=== PATIENT | male | born 1955 | race Caucasian/White ===

== ENCOUNTER 2018-03-20 18:04 | Outpatient (REF) | payer MEDICAID, SELFPAY ==
[2018-03-20 22:00] LABS: TSH (W/Ref FT4) 2.25 uIU/mL (0.358-3.74)
== END 2018-03-20 18:24 ==
LOC: NCHCN 18:04
PROVIDERS: Physician Assistant; PCP Family Medicine; Visit Provider Nurse Practitioner Family
DX: N64.59 Other signs and symptoms in breast (principal); L98.9 Disorder of the skin and subcutaneous tissue, unspecified
CPT/HCPCS: 84443

== ENCOUNTER 2018-04-02 00:31 | Outpatient (CLI) | payer MEDICAID, SELFPAY ==
--- NOTE | 2018-04-02 13:05 | DI.COMBO_ITS ---
SYMPTOMS/DIAGNOSIS: CHANGES IN NIPPLE, N64.59 DIAGNOSTIC BILATERAL MAMMOGRAM AND BILATERAL BREAST ULTRASOUND: MAMMOGRAM: Mammograms were interpreted according to the usual protocol including computer analysis with CAD system, tomosynthesis and C view imaging. There are no prior mammograms. The breasts are composed of fatty density tissue. No masses or suspicious calcifications are seen. There is no skin thickening or prominence of the nipples. No gynecomastia is seen. BILATERAL BREAST ULTRASOUND: No mass, cyst or breast tissue is seen. Only fatty tissue is identified. IMPRESSION: Category 1, negative mammogram and bilateral breast ultrasound. [facility] ASSESSMENT OF FINDINGS: Negative. Category 1. Patient will receive a letter notifying them of these results. BI-RAD category A. The breasts are almost entirely fatty.
== END 2018-04-02 00:51 ==
PROVIDERS: PCP Family Medicine; Visit Provider Nurse Practitioner Family
DX: N64.59 Other signs and symptoms in breast (principal)
CPT/HCPCS: 76642; 77062; 77066; G0279

== ENCOUNTER 2018-06-13 16:57 | Outpatient (REF) | payer MEDICAID, SELFPAY ==
[2018-06-13 21:18] LABS: Abs Immature Grans 0.03 k/cumm (0.0-0.09); Absolute Eosinophil Count 0.24 k/cumm (0.0-0.7); Absolute Monocyte Count 0.91 k/cumm (0.11-0.7); Basophils % 0.6; Eosinophils % 2.2; HCT 47.1 % (40.0-50.0); HGB 16.3 g/dL (13.5-17.5); Immature Grans % 0.3; Lymphocytes % 22.1; Mean Corp. HGB Concentration 34.6 g/dL (32.0-36.0); Mean Corpuscular Hemoglobin 30.6 pg (27.0-33.0); Mean Corpuscular Volume 88.5 fL (80-95); Mean Platelet Volume 10.3 fL (8.0-11.0); Monocytes % 8.4; Neutrophils % 66.4; Platelet Count 284 x1000/uL (130-400); RBC 5.32 m/cumm (4.50-6.00); RBC Distribution Width 13.1 % (11.8-14.1); White Blood Cell Count 10.88 k/cumm (4.4-10.8)
[2018-06-13 21:19] LABS: Absolute Basophil Count 0.07 k/cumm (0.0-0.2); Absolute Neutrophil Count 7.22 k/cumm (1.2-6.7)
[2018-06-13 22:00] LABS: ALT 28 U/L (12-78); AST 19 U/L (15-37); Alkaline Phosphatase 116 U/L (46-116); Anion Gap 11.1 mmol/L (3-11); BUN 25 mg/dL (7-18); Bilirubin, Total 0.4 mg/dL (0.2-1.0); CO2 24.9 mmol/L (21.0-32.0); CREATININE 1.21 mg/dL (0.70-1.30); Calcium 9.3 mg/dL (8.5-10.1); Chloride 106 mmol/L (98-107); Cholesterol 224 mg/dL (50-200); Glucose 118 mg/dL (70-100); HDL Cholesterol 34 mg/dL (40-60); LDL CHOLESTEROL 158 mg/dL (<100); Potassium 4.1 mmol/L (3.5-5.1); Sodium 142 mmol/L (136-145); Total Protein 7.1 g/dL (6.4-8.2); Triglyceride 249 mg/dL (30-150); Vitamin B12 695 pg/mL (193-986)
[2018-06-15 13:01] LABS: PSA, Screening 2.1 ng/ml (0-4.5)
[2018-06-20 17:04] LABS: Testosterone, Free 5.79 ng/dL (3.67-13.9); Testosterone, Total 362 ng/dL (240-950)
== END 2018-06-13 17:17 ==
LOC: NCHCN 16:57
PROVIDERS: PCP Family Medicine; Visit Provider Family Medicine
DX: E78.5 Hyperlipidemia, unspecified (principal); E29.1 Testicular hypofunction; M19.049 Primary osteoarthritis, unspecified hand; Z12.5 Encounter for screening for malignant neoplasm of prostate
CPT/HCPCS: 80053; 80061; 83721; 84153; 84402; 84403; 82607; 85025

== ENCOUNTER 2018-09-26 16:30 | Outpatient (REF) | payer MEDICAID, SELFPAY ==
[2018-09-30 17:13] LABS: Testosterone, Free 23.6 ng/dL (3.67-13.9); Testosterone, Total 984 ng/dL (240-950)
== END 2018-09-26 16:50 ==
LOC: NCHCN 16:30
PROVIDERS: PCP Family Medicine; Visit Provider Family Medicine
DX: E29.1 Testicular hypofunction (principal)
CPT/HCPCS: 84402; 84403

== ENCOUNTER 2019-02-06 16:32 | Outpatient (REF) | payer MEDICAID, SELFPAY ==
[2019-02-10 09:51] LABS: Testosterone, Free 6.46 ng/dL (3.67-13.9); Testosterone, Total 380 ng/dL (240-950)
== END 2019-02-06 16:52 ==
LOC: NCHCN 16:32
PROVIDERS: PCP Family Medicine; Visit Provider Family Medicine
DX: E29.1 Testicular hypofunction (principal)
CPT/HCPCS: 84402; 84403

== ENCOUNTER 2019-04-19 13:56 | Outpatient (REF) | payer MEDICARE, SELFPAY ==
[2019-04-26 11:56] LABS: Testosterone, Free 4.03 ng/dL (3.47-13.0); Testosterone, Total 252 ng/dL (240-950)
== END 2019-04-19 14:16 ==
LOC: NCHCN 13:56
PROVIDERS: PCP Family Medicine; Visit Provider Family Medicine
DX: E29.1 Testicular hypofunction (principal)
CPT/HCPCS: 84402; 84403

== ENCOUNTER 2020-01-07 02:14 | Outpatient (CLI) | payer MEDICARE, SELFPAY ==
[2020-01-08 17:38] LABS: CEA 0.8 ng/mL (See Note)
== END 2020-01-07 02:34 ==
PROVIDERS: PCP Family Medicine; Visit Provider Nurse Practitioner Acute Care
DX: C18.9 Malignant neoplasm of colon, unspecified (principal)
CPT/HCPCS: 36415; 82378

== ENCOUNTER 2020-04-21 01:53 | Outpatient (CLI) | payer MEDICARE, SELFPAY ==
[2020-04-21 17:46] LABS: ESR 3 mm/hr (1-20)
[2020-04-21 18:54] LABS: Vitamin B12 460 pg/mL (193-986)
[2020-04-25 10:23] LABS: Thiamine (Vitamin B1), WB 242 nmol/L (70-180)
[2020-04-27 08:51] LABS: Pyridoxal 5-Phosphate (PLP), P 3 mcg/L (5-50)
[2020-05-01 13:12] LABS: Albumin 3.4 g/dL (3.4-4.7); Total Protein 6.1 g/dL (6.3-7.9)
== END 2020-04-21 02:13 ==
PROVIDERS: Psychiatry & Neurology Neurology; PCP Family Medicine; Visit Provider Family Medicine
DX: G62.9 Polyneuropathy, unspecified (principal)
CPT/HCPCS: 36415; 85652; 82607; 84165; 84207; 84425

== ENCOUNTER 2020-09-01 03:50 | Outpatient (CLI) | payer MEDICARE, SELFPAY ==
[2020-09-03 11:54] LABS: Albumin 65.6 % (55.8-66.1); Total Protein 6.4 g/dL (6.3-8.2)
== END 2020-09-01 03:51 | disposition home or self-care (01) ==
LOC: LBO 03:50
PROVIDERS: PCP Family Medicine; Visit Provider Nurse Practitioner Acute Care
DX: C18.2 Malignant neoplasm of ascending colon (principal)
CPT/HCPCS: 36415; 82378; 84165

== ENCOUNTER 2020-12-08 03:24 | Outpatient (CLI) | payer MEDICARE, MEDICAID, SELFPAY | END 2020-12-08 03:25 | disposition home or self-care (01) | LOC: LBO 03:24 | PROVIDERS: PCP Family Medicine; Visit Provider Internal Medicine Hematology & Oncology | DX: C18.7 Malignant neoplasm of sigmoid colon (principal) | CPT/HCPCS: 36415; 82378 ==

== ENCOUNTER 2021-03-12 02:16 | Outpatient (CLI) | payer MEDICARE, MEDICAID, SELFPAY ==
[2021-03-12 15:10] LABS: Abs Immature Grans 0.06 10^3/uL (0.0-0.06); Absolute Basophil Count 0.12 10^3/uL (0.0-0.2); Absolute Eosinophil Count 0.19 10^3/uL (0.0-0.7); Absolute Lymphocyte Count 1.94 10^3/uL (1.2-3.4); Absolute Monocyte Count 0.69 10^3/uL (0.1-0.8); Basophils % 1.1; Eosinophils % 1.8; HCT 55.6 % (40.0-50.0); Immature Grans % 0.6; Lymphocytes % 18.1; MCHC 33.6 % (32.0-36.0); MCV 89.1 fL (80-95); MPV 9.1 fL (8.0-11.0); Monocytes % 6.4; Nucleated RBC 0 %; Platelet Count 241 10^3/uL (130-400); RBC 6.24 10^6/uL (4.36-5.78); RDW 13.5 % (11.8-14.1); RDW-SD 43.9 fL
[2021-03-12 15:12] LABS: HGB 18.7 g/dL (13.5-17.5)
[2021-03-12 15:25] LABS: ALT 34 U/L (16-63); AST 18 U/L (15-37); Albumin 3.7 g/dL (3.4-5.0); Alkaline Phosphatase 102 U/L (46-116); Anion Gap 8.5 mmol/L (3-11); BUN 17 mg/dL (7-18); Bilirubin, Total 0.6 mg/dL (0.2-1.0); CO2 27.5 mmol/L (21.0-32.0); CREATININE 1.2 mg/dL (0.70-1.30); Calcium 8.8 mg/dL (8.5-10.1); Chloride 104 mmol/L (98-107); Glucose 150 mg/dL (74-106); Potassium 3.7 mmol/L (3.5-5.1); Sodium 140 mmol/L (136-145); Total Protein 6.9 g/dL (6.4-8.2)
== END 2021-03-12 02:17 | disposition home or self-care (01) ==
LOC: LBO 02:17
PROVIDERS: PCP Family Medicine; Visit Provider Internal Medicine Hematology & Oncology
DX: C21.0 Malignant neoplasm of anus, unspecified (principal); C15.5 Malignant neoplasm of lower third of esophagus
CPT/HCPCS: 36415; 80053; 82378; 85025

== ENCOUNTER 2021-04-01 11:49 | Outpatient (CLI) | payer MEDICARE, MEDICAID, SELFPAY ==
[2021-04-01 15:52] LABS: Abs Immature Grans 0.03 10^3/uL (0.0-0.06); Absolute Basophil Count 0.09 10^3/uL (0.0-0.2); Absolute Eosinophil Count 0.28 10^3/uL (0.0-0.7); Absolute Lymphocyte Count 1.79 10^3/uL (1.2-3.4); Absolute Monocyte Count 0.81 10^3/uL (0.1-0.8); Absolute Neutrophil Count 6.39 10^3/uL (1.2-6.7); HCT 51.6 % (40.0-50.0); HGB 17.6 g/dL (13.5-17.5); Immature Grans % 0.3; Lymphocytes % 19.1; MCH 30.1 pg (27.0-33.0); MCHC 34.1 % (32.0-36.0); MCV 88.4 fL (80-95); MPV 9.2 fL (8.0-11.0); Monocytes % 8.6; Nucleated RBC 0 %; Platelet Count 279 10^3/uL (130-400); RBC 5.84 10^6/uL (4.36-5.78); RDW 13.2 % (11.8-14.1); RDW-SD 42.5 fL; WBC 9.39 10^3/uL (4.4-10.8)
[2021-04-01 16:09] LABS: ALT 34 U/L (16-63); AST 20 U/L (15-37); Albumin 3.7 g/dL (3.4-5.0); Alkaline Phosphatase 93 U/L (46-116); Anion Gap 6.8 mmol/L (3-11); BUN 16 mg/dL (7-18); Bilirubin, Total 0.5 mg/dL (0.2-1.0); CO2 28.2 mmol/L (21.0-32.0); CREATININE 1.2 mg/dL (0.70-1.30); Calcium 8.6 mg/dL (8.5-10.1); Chloride 107 mmol/L (98-107); Glucose 114 mg/dL (74-106); Potassium 3.7 mmol/L (3.5-5.1); Sodium 142 mmol/L (136-145); Total Protein 6.6 g/dL (6.4-8.2)
== END 2021-04-01 11:50 | disposition home or self-care (01) ==
LOC: LBO 04-02 11:50
PROVIDERS: PCP Family Medicine; Visit Provider Internal Medicine Hematology & Oncology
DX: C15.5 Malignant neoplasm of lower third of esophagus (principal)
CPT/HCPCS: 36415; 80053; 85025

== ENCOUNTER 2021-04-09 03:27 | Outpatient (CLI) | payer MEDICARE, MEDICAID, SELFPAY ==
[2021-04-09 13:38] LABS: Abs Immature Grans 0.02 10^3/uL (0.0-0.06); Absolute Basophil Count 0.03 10^3/uL (0.0-0.2); Absolute Monocyte Count 0.51 10^3/uL (0.1-0.8); Absolute Neutrophil Count 5.15 10^3/uL (1.2-6.7); Basophils % 0.4; Eosinophils % 1.5; HCT 54.9 % (40.0-50.0); HGB 18.4 g/dL (13.5-17.5); Immature Grans % 0.3; Lymphocytes % 13.4; MCH 30.4 pg (27.0-33.0); MCHC 33.5 % (32.0-36.0); MCV 90.7 fL (80-95); Monocytes % 7.6; Neutrophils % 76.8; Nucleated RBC 0 %; Platelet Count 198 10^3/uL (130-400); RBC 6.05 10^6/uL (4.36-5.78); RDW 13.1 % (11.8-14.1); RDW-SD 42.2 fL; WBC 6.71 10^3/uL (4.4-10.8)
[2021-04-09 13:52] LABS: ALT 28 U/L (16-63); AST 17 U/L (15-37); Albumin 4.1 g/dL (3.4-5.0); Alkaline Phosphatase 87 U/L (46-116); Anion Gap 4.5 mmol/L (3-11); BUN 23 mg/dL (7-18); Bilirubin, Total 0.9 mg/dL (0.2-1.0); CO2 32.5 mmol/L (21.0-32.0); CREATININE 1.3 mg/dL (0.70-1.30); Calcium 9.1 mg/dL (8.5-10.1); Chloride 104 mmol/L (98-107); Estimated GFR 55.06 (mL/min/1.73m2); Glucose 104 mg/dL (74-106); Potassium 4.2 mmol/L (3.5-5.1); Sodium 141 mmol/L (136-145); Total Protein 7.2 g/dL (6.4-8.2)
== END 2021-04-09 03:28 | disposition home or self-care (01) ==
LOC: LBO 03:27
PROVIDERS: PCP Family Medicine; Visit Provider Internal Medicine Hematology & Oncology
DX: C15.5 Malignant neoplasm of lower third of esophagus (principal); C18.7 Malignant neoplasm of sigmoid colon
CPT/HCPCS: 36415; 80053; 82378; 85025

== ENCOUNTER 2021-04-16 11:56 | Outpatient (CLI) | payer MEDICARE, MEDICAID, SELFPAY ==
[2021-04-16 12:15] LABS: Abs Immature Grans 0.03 10^3/uL (0.0-0.06); Absolute Basophil Count 0.02 10^3/uL (0.0-0.2); Absolute Eosinophil Count 0.12 10^3/uL (0.0-0.7); Absolute Lymphocyte Count 0.48 10^3/uL (1.2-3.4); Absolute Monocyte Count 0.62 10^3/uL (0.1-0.8); Absolute Neutrophil Count 4.68 10^3/uL (1.2-6.7); Basophils % 0.3; HCT 47.5 % (40.0-50.0); Immature Grans % 0.5; Lymphocytes % 8.1; MCH 30.8 pg (27.0-33.0); MCHC 33.7 % (32.0-36.0); MCV 91.5 fL (80-95); Monocytes % 10.4; Neutrophils % 78.7; Nucleated RBC 0 %; Platelet Count 163 10^3/uL (130-400); RBC 5.19 10^6/uL (4.36-5.78); RDW 13.4 % (11.8-14.1); RDW-SD 41.7 fL; WBC 5.95 10^3/uL (4.4-10.8)
[2021-04-16 12:29] LABS: ALT 23 U/L (16-63); AST 16 U/L (15-37); Albumin 3.3 g/dL (3.4-5.0); Alkaline Phosphatase 80 U/L (46-116); Anion Gap 7.2 mmol/L (3-11); BUN 17 mg/dL (7-18); Bilirubin, Total 0.9 mg/dL (0.2-1.0); CO2 29.8 mmol/L (21.0-32.0); CREATININE 1.2 mg/dL (0.70-1.30); Calcium 8.6 mg/dL (8.5-10.1); Chloride 103 mmol/L (98-107); Glucose 139 mg/dL (74-106); Potassium 3.9 mmol/L (3.5-5.1); Sodium 140 mmol/L (136-145); Total Protein 6.2 g/dL (6.4-8.2)
[2021-04-19 09:52] LABS: CEA 5.2 ng/mL (See Note)
== END 2021-04-16 11:57 | disposition home or self-care (01) ==
LOC: LBO 12:09
PROVIDERS: PCP Family Medicine; Visit Provider Internal Medicine Hematology & Oncology
DX: C15.5 Malignant neoplasm of lower third of esophagus (principal); C18.7 Malignant neoplasm of sigmoid colon
CPT/HCPCS: 36415; 80053; 82378; 85025

== ENCOUNTER 2021-04-20 12:10 | Outpatient (REF) | payer MEDICARE, MEDICAID, SELFPAY ==
[2021-04-21 11:55] LABS: Clarity Clear (Clear); Glucose Negative (Negative); Leukocyte Esterase Negative (Negative); Nitrite Negative (Negative); Specific Gravity >= 1.030 (1.005-1.025); pH 6.5 (5-8)
[2021-04-21 11:56] LABS: Bacteria Few HPF (Negative); Bilirubin Small (Negative); Blood Negative (Negative); Epithelial Cells Negative HPF (Negative); Ketones Negative (Negative); WBC 0-2 HPF (0-5)
[2021-04-21 11:57] LABS: C & S Indicated? No; Casts Negative LPF (Negative); Crystals Mod Calcium Oxalate HPF (Negative); Mucus Trace (Negative)
== END 2021-04-20 12:11 | disposition home or self-care (01) ==
LOC: LBN 12:10
PROVIDERS: PCP Family Medicine; Visit Provider Radiology Radiation Oncology
DX: C21.0 Malignant neoplasm of anus, unspecified (principal); R30.0 Dysuria
CPT/HCPCS: 81003; 81015

== ENCOUNTER 2021-04-23 03:30 | Outpatient (CLI) | payer MEDICARE, MEDICAID, SELFPAY ==
[2021-04-23 12:47] LABS: Abs Immature Grans 0.06 10^3/uL (0.0-0.06); Absolute Basophil Count 0.03 10^3/uL (0.0-0.2); Absolute Eosinophil Count 0.16 10^3/uL (0.0-0.7); Absolute Lymphocyte Count 0.33 10^3/uL (1.2-3.4); Absolute Neutrophil Count 5.76 10^3/uL (1.2-6.7); Basophils % 0.4; Eosinophils % 2.3; HCT 46.3 % (40.0-50.0); Immature Grans % 0.9; Lymphocytes % 4.8; MCH 31.4 pg (27.0-33.0); MCHC 34.6 % (32.0-36.0); MCV 90.8 fL (80-95); MPV 8.5 fL (8.0-11.0); Monocytes % 8.6; Nucleated RBC 0 %; Platelet Count 162 10^3/uL (130-400); RDW 14.6 % (11.8-14.1); RDW-SD 42.6 fL; WBC 6.94 10^3/uL (4.4-10.8)
[2021-04-23 13:09] LABS: BUN 21 mg/dL (7-18); CREATININE 1.3 mg/dL (0.70-1.30); Calcium 8.9 mg/dL (8.5-10.1); Estimated GFR 55.06 (mL/min/1.73m2); Glucose 113 mg/dL (74-106)
[2021-04-23 13:10] LABS: ALT 25 U/L (16-63); AST 16 U/L (15-37); Albumin 3.4 g/dL (3.4-5.0); Alkaline Phosphatase 93 U/L (46-116); Anion Gap 4.3 mmol/L (3-11); Bilirubin, Total 1.1 mg/dL (0.2-1.0); CO2 30.7 mmol/L (21.0-32.0); Chloride 105 mmol/L (98-107); Potassium 3.9 mmol/L (3.5-5.1); Sodium 140 mmol/L (136-145); Total Protein 6.7 g/dL (6.4-8.2)
[2021-04-23 23:06] LABS: CEA 4.1 ng/mL (See Note)
== END 2021-04-23 03:31 | disposition home or self-care (01) ==
LOC: LBO 03:30
PROVIDERS: PCP Family Medicine; Visit Provider Internal Medicine Hematology & Oncology
DX: C15.5 Malignant neoplasm of lower third of esophagus (principal); C18.7 Malignant neoplasm of sigmoid colon
CPT/HCPCS: 36415; 80053; 82378; 85025

== ENCOUNTER 2021-04-30 03:35 | Outpatient (CLI) | payer MEDICARE, MEDICAID, SELFPAY ==
[2021-04-30 12:22] LABS: Abs Immature Grans 0.03 10^3/uL (0.0-0.06); Absolute Basophil Count 0.03 10^3/uL (0.0-0.2); Absolute Eosinophil Count 0.06 10^3/uL (0.0-0.7); Absolute Lymphocyte Count 0.33 10^3/uL (1.2-3.4); Absolute Monocyte Count 0.68 10^3/uL (0.1-0.8); Absolute Neutrophil Count 6.92 10^3/uL (1.2-6.7); Basophils % 0.4; Eosinophils % 0.7; HGB 14.9 g/dL (13.5-17.5); Immature Grans % 0.4; Lymphocytes % 4.1; MCH 31.5 pg (27.0-33.0); MCHC 33.9 % (32.0-36.0); MPV 8.7 fL (8.0-11.0); Monocytes % 8.4; Nucleated RBC 0 %; Platelet Count 162 10^3/uL (130-400); RBC 4.73 10^6/uL (4.36-5.78); RDW 15.1 % (11.8-14.1); RDW-SD 45.7 fL; WBC 8.05 10^3/uL (4.4-10.8)
[2021-04-30 14:09] LABS: ALT 20 U/L (16-63); AST 14 U/L (15-37); Albumin 3.4 g/dL (3.4-5.0); Alkaline Phosphatase 97 U/L (46-116); Anion Gap 6.6 mmol/L (3-11); BUN 25 mg/dL (7-18); Bilirubin, Total 1.2 mg/dL (0.2-1.0); CO2 31.4 mmol/L (21.0-32.0); CREATININE 1.2 mg/dL (0.70-1.30); Calcium 8.6 mg/dL (8.5-10.1); Chloride 103 mmol/L (98-107); Glucose 141 mg/dL (74-106); Potassium 4.1 mmol/L (3.5-5.1); Sodium 141 mmol/L (136-145); Total Protein 5.9 g/dL (6.4-8.2)
[2021-04-30 22:51] LABS: CEA 3.9 ng/mL (See Note)
== END 2021-04-30 03:36 | disposition home or self-care (01) ==
LOC: LBO 03:36
PROVIDERS: Internal Medicine Hematology & Oncology; PCP Family Medicine; Visit Provider Internal Medicine Hematology & Oncology
DX: C18.7 Malignant neoplasm of sigmoid colon (principal); C15.5 Malignant neoplasm of lower third of esophagus
CPT/HCPCS: 36415; 80053; 82378; 85025

== ENCOUNTER 2021-05-07 11:23 | Outpatient (CLI) | payer MEDICARE, MEDICAID, SELFPAY ==
[2021-05-07 11:57] LABS: Abs Immature Grans 0.03 10^3/uL (0.0-0.06); Absolute Basophil Count 0.03 10^3/uL (0.0-0.2); Absolute Eosinophil Count 0.15 10^3/uL (0.0-0.7); Absolute Lymphocyte Count 0.23 10^3/uL (1.2-3.4); Absolute Monocyte Count 0.67 10^3/uL (0.1-0.8); Basophils % 0.5; Eosinophils % 2.5; HCT 42.3 % (40.0-50.0); HGB 14.4 g/dL (13.5-17.5); Immature Grans % 0.5; Lymphocytes % 3.8; MCH 31.6 pg (27.0-33.0); MCV 92.8 fL (80-95); MPV 8.3 fL (8.0-11.0); Neutrophils % 81.7; Nucleated RBC 0 %; Platelet Count 178 10^3/uL (130-400); RBC 4.56 10^6/uL (4.36-5.78); RDW 15.8 % (11.8-14.1); WBC 6.11 10^3/uL (4.4-10.8)
[2021-05-07 12:12] LABS: ALT 22 U/L (16-63); AST 24 U/L (15-37); Albumin 3.4 g/dL (3.4-5.0); Alkaline Phosphatase 102 U/L (46-116); Anion Gap 6.4 mmol/L (3-11); BUN 32 mg/dL (7-18); CO2 29.6 mmol/L (21.0-32.0); CREATININE 1.2 mg/dL (0.70-1.30); Calcium 8.5 mg/dL (8.5-10.1); Chloride 103 mmol/L (98-107); Glucose 104 mg/dL (74-106); Sodium 139 mmol/L (136-145); Total Protein 6.3 g/dL (6.4-8.2)
[2021-05-07 12:55] LABS: Calculated LDL 94 mg/dL (<100); Cholesterol 151 mg/dL (<200); HDL Cholesterol 47 mg/dL (40-60); Triglyceride 51 mg/dL (<150)
[2021-05-07 17:38] LABS: CEA 2.9 ng/mL (See Note)
[2021-05-12 01:42] LABS: Testosterone, Total 73 ng/dL (240-950)
== END 2021-05-07 11:24 | disposition home or self-care (01) ==
LOC: LBO 11:25
PROVIDERS: PCP Family Medicine; Visit Provider Internal Medicine Hematology & Oncology
DX: C15.5 Malignant neoplasm of lower third of esophagus (principal); I10 Essential (primary) hypertension; C18.7 Malignant neoplasm of sigmoid colon; E78.00 Pure hypercholesterolemia, unspecified; I73.9 Peripheral vascular disease, unspecified; E29.1 Testicular hypofunction
CPT/HCPCS: 36415; 80053; 80061; 84403; 82378; 85025

== ENCOUNTER 2021-05-14 12:04 | Outpatient (CLI) | payer MEDICARE, MEDICAID, SELFPAY ==
[2021-05-14 12:23] LABS: Abs Immature Grans 0.03 10^3/uL (0.0-0.06); Absolute Basophil Count 0.04 10^3/uL (0.0-0.2); Absolute Eosinophil Count 0.18 10^3/uL (0.0-0.7); Absolute Lymphocyte Count 0.38 10^3/uL (1.2-3.4); Absolute Neutrophil Count 4.62 10^3/uL (1.2-6.7); Basophils % 0.7; Eosinophils % 3.1; HCT 45.3 % (40.0-50.0); Immature Grans % 0.5; Lymphocytes % 6.5; MCH 31.3 pg (27.0-33.0); MCHC 33.1 % (32.0-36.0); MCV 94.4 fL (80-95); MPV 8.6 fL (8.0-11.0); Monocytes % 10.3; Neutrophils % 78.9; Nucleated RBC 0 %; Platelet Count 169 10^3/uL (130-400); RDW 15.9 % (11.8-14.1); RDW-SD 54.3 fL; WBC 5.85 10^3/uL (4.4-10.8)
[2021-05-14 12:42] LABS: ALT 31 U/L (16-63); AST 17 U/L (15-37); Albumin 3.5 g/dL (3.4-5.0); Alkaline Phosphatase 94 U/L (46-116); Anion Gap 3.9 mmol/L (3-11); BUN 27 mg/dL (7-18); Bilirubin, Total 0.9 mg/dL (0.2-1.0); CO2 33.1 mmol/L (21.0-32.0); CREATININE 1.2 mg/dL (0.70-1.30); Calcium 8.9 mg/dL (8.5-10.1); Chloride 104 mmol/L (98-107); Glucose 125 mg/dL (74-106); Potassium 4.2 mmol/L (3.5-5.1); Sodium 141 mmol/L (136-145); Total Protein 6.5 g/dL (6.4-8.2)
== END 2021-05-14 12:05 | disposition home or self-care (01) ==
LOC: LBO 12:07
PROVIDERS: PCP Family Medicine; Visit Provider Internal Medicine Hematology & Oncology
DX: C15.5 Malignant neoplasm of lower third of esophagus (principal)
CPT/HCPCS: 36415; 80053; 82378; 85025

== ENCOUNTER 2021-05-17 15:36 | Emergency (ER) | payer MEDICARE, SELFPAY ==
[2021-05-17] VITALS (27 sets, daily range): BP systolic 115–140; BP diastolic 61–86; PULSE 80–106; RESP 14–38; TEMP 36.7; O2SAT 91–98
--- NOTE | 2021-05-17 16:15 | RT.EKG_ITS ---
APPROVED REPORT Exam: Resting ECG Reason for Exam: dizziness Patient Location: E HR:94 bpm ECG Measurements Heart Rate 94 AXIS IL 166 P 32 QRSd 95 QRS 61 QT 360 T 74 QTc 450 Conclusion Sinus rhythm...normal P axis, V-rate 60- 99 Ventricular premature complex...V complex w/ short R-R interval
--- NOTE | 2021-05-17 16:30 | ED.GENADUL_ITS ---
Discharge Plan Disposition Patient Disposition: HOME Condition: Stable Discharge Details Clinical Impression: Lightheaded Primary Care Provider: Jack Rouse ED Provider: Johnson Abbott Home Meds and New Rx's Prescriptions: Continued simvastatin 20 MG tablet 20 mg PO DAILY RF: 0 naproxen 500 MG tablet 500 mg PO BID PRN PRNQty: 30 RF: 0 fluoxetine 40 mg capsule 40 mg PO DAILY RF: 0 lamotrigine 150 mg tablet 150 mg PO DAILY RF: 0 methylphenidate HCl 10 mg tablet 30 mg PO DAILY RF: 0 ondansetron HCl 8 mg tablet 8 mg PO Q8H PRN PRNRF: 0 phenazopyridine 200 mg tablet 200 mg PO QID PRNRF: 0 hydrocodone-acetaminophen 10-325 mg tablet 1 - 2 tab PO Q6H PRN PRNRF: 0 tamsulosin 0.4 mg capsule 0.4 mg PO HS RF: 0 gabapentin 300 mg capsule 300 mg PO TID RF: 0 vitamin B complex Capsule 1 cap PO HS RF: 0 bupropion HCl 150 mg tablet extended release 24 hr 150 mg PO HS RF: 0 Vyvanse 70 mg capsule 70 mg PO DAILY RF: 0 levomefolate calcium 15 mg tablet 15 mg PO DAILY RF: 0 cyanocobalamin (vitamin B-12) 1,000 mcg lozenge 1,000 mcg sublingual HS RF: 0 silver sulfadiazine [SSD] 1 % cream 1 applic TOPICAL BID RF: 0 Triple Antibiotic 3.5mg-400 unit- 5,000 unit/gram ointment TOPICAL RF: 0 hydrocortisone 1 % cream with perineal applicator 1 applic topical BID RF: 0 Discharge Instructions Instructions: Lightheadedness (ED) Additional Instructions: your blood work did not show concerning findings at this time follow up with your oncologist and primary care primary provider if you feel more ill, have worsening pain or difficulty breathing return to the emergency department Medical Decision Making 66 yo male with hx of colon cancer who gets radiation and chemotherapy, last treatment was Monday, who comes in with chief complaint of feeling lightheaded intermittently the past few days. He denies falls, fevers, chills, dyspnea, chest pain, abdominal pain, headache. He states he just feels lightheaded and sometimes dizzy and currently feels lightheaded. He went to urgent care and they noted an oxygen saturation of 84% so referred here and on arrival his oxygen saturation is normal. He states he also has had intermittent cramping sensation in his hands and legs. He currently is in sinus rhythm, has a normal gait, PERRL, reassuring hints exam. No focal motor or sensation deficits. Clear speech. Unclear etiology for his symptoms, given he is in sinus rhythm while feeling lightheaded doubt serious arrythmia such as vtach. Exam reassuring against etiology such as central vertigo. Will evaluate for anemia, electrolyte abnormality and given his colon cancer he is wells score low for PE, will send d dimer. labs reassuring and he remains stable with normal vitals and tele monitoring. Discussed with pt, he is comfortable and stable for discharge, return precautions given Differential Diagnosis Differential Diagnosis: anemia, electrolyte abnormality, pe Medical Records Medical records reviewed: Yes I reviewed the patient's medical records. ECG Data Attestation: I personally reviewed and interpreted this ECG (s) as follows: Prior ECG tracings: not available for review Interpretation: sinus rhythm, rate of 95, no acute st t wave ischemic findings HPI General Mode of arrival: ambulatory . Date/Time Provider Initiated Documentation: 05/17/21 16:09 . Limitations to Documentation: no limitations . Information obtained by: patient . History of Present Illness 66 year old M presents to the emergency department with the chief complaint of lightheaded, described as moderate, Patient reports no radiation. Patient started exp eriencing this day(s) (3) and it has been intermittent. No relieving factors improve symptom(s), No exacerbating factors reported . Patient notes other (cramps in legs). Patient did receive the following treatments prior to arrival, none Related Data Home Medications Medication Instructions Recorded Confirmed naproxen 500 mg PO BID PRN PRN #30 tablet 06/04/14 05/17/21 simvastatin 20 mg PO DAILY 06/04/14 05/17/21 Triple Antibiotic TOPICAL 05/17/21 05/17/21 Vyvanse 70 mg PO DAILY 05/17/21 05/17/21 bupropion HCl 150 mg PO HS 05/17/21 05/17/21 cyanocobalamin (vitamin B-12) 1,000 mcg SUBLINGUAL HS 05/17/21 05/17/21 fluoxetine 40 mg PO DAILY 05/17/21 05/17/21 gabapentin 300 mg PO TID 05/17/21 05/17/21 hydrocodone-acetaminophen 1 - 2 tab PO Q6H PRN PRN 05/17/21 05/17/21 hydrocortisone 1 applic TOPICAL BID 05/17/21 05/17/21 lamotrigine 150 mg PO DAILY 05/17/21 05/17/21 levomefolate calcium 15 mg PO DAILY 05/17/21 05/17/21 methylphenidate HCl 30 mg PO DAILY 05/17/21 05/17/21 ondansetron HCl 8 mg PO Q8H PRN PRN 05/17/21 05/17/21 phenazopyridine 200 mg PO QID PRN 05/17/21 05/17/21 silver sulfadiazine [SSD] 1 applic TOPICAL BID 05/17/21 05/17/21 tamsulosin 0.4 mg PO HS 05/17/21 05/17/21 vitamin B complex 1 cap PO HS 05/17/21 05/17/21 Previous Rx's Medication Instructions Recorded naproxen 500 mg PO BID PRN PRN #30 tablet 06/04/14 Allergies Allergy/AdvReac Type Severity Reaction Status Date / Time No Known Allergies Allergy Unverified 05/17/21 16:04 General Stated Complaint: GenMedical WEST: 3 Review of Systems All systems reviewed & are unremarkable except as noted in HPI and below Constitutional Constitutional: Denies chills, Denies fever(s) and Denies weakness Cardiovascular Cardiovascular: Denies chest pain and Denies dyspnea Respiratory Respiratory: Denies cough and Denies dyspnea Gastrointestinal Gastrointestinal: Denies abdominal pain, Denies nausea and Denies vomiting Musculoskeletal Musculoskeletal: Denies joint swelling Neurologic Neurologic: Denies weakness [facility] Active Problem List (Updated 05/17/21 @ 19:48 by Johnson Abbott MD) Neoplasm of unspecified behavior of bone, soft tissue, and skin (Chronic) Deviated nasal septum (Chronic) Lightheaded (Acute) Medical History (Updated 05/17/21 @ 19:48 by Johnson Abbott MD) Arthritis Carpal tunnel syndrome Colon cancer Neuropathy Surgical History (Updated 05/17/21 @ 16:05 by Johanna Conteh) History of colon resection History of esophageal surgery Social History Smoking/Tobacco Use Status: Never Smoking risk assessment performed?: Yes Alcohol Intake: never Drug use: Never Substance use type: does not use Exam Const General: no acute distress Orientation: alert HENMT Head: normal to inspection Ears: external ears normal General nose exam: external nose normal Mouth: moist mucous membranes Eyes General: appearance normal, both eyes and all related structures Neck Neck: normal visual inspection Resp Effort & Inspection: normal respiratory effort and able to speak in complete sentences Cardio Rate: regular rate GI Palpation: soft and nontender Skin General skin exam: no rashes or lesions noted Neuro General: patient alert and patient oriented x3 Extrem General: normal to inspection Psych Mental Status: mental status grossly normal Course Vital Signs Vital signs: Vital Signs Temperature 36.7 C 05/17/21 16:00 Pulse 94 H 05/17/21 16:00 Respiratory Rate 20 05/17/21 16:00 Blood Pressure 125/86 05/17/21 16:00 Pulse Oximetry 96 05/17/21 16:00 Temperature 36.7 C 05/17/21 16:00 Temperature Source Skin 05/17/21 16:00 Pulse 94 H 05/17/21 16:00 Respiratory Rate 20 05/17/21 16:00 Respiratory Effort Non-Labored 05/17/21 16:14 Blood Pressure 125/86 05/17/21 16:00 Blood Pressure Position Sitting 05/17/21 16:00 Pulse Oximetry 96 05/17/21 16:00 Oxygen Delivery Method Room Air 05/17/21 16:00 Oxygen Flow Rate 0 05/17/21 16:00 Pain Level 0 05/17/21 16:00
[2021-05-17 17:13] LABS: Abs Immature Grans 0.04 10^3/uL (0.0-0.06); Absolute Basophil Count 0.06 10^3/uL (0.0-0.2); Absolute Eosinophil Count 0.22 10^3/uL (0.0-0.7); Absolute Lymphocyte Count 0.49 10^3/uL (1.2-3.4); Absolute Monocyte Count 0.76 10^3/uL (0.1-0.8); Absolute Neutrophil Count 6.19 10^3/uL (1.2-6.7); Basophils % 0.8; Eosinophils % 2.8; HCT 44.5 % (40.0-50.0); HGB 15.2 g/dL (13.5-17.5); Immature Grans % 0.5; Lymphocytes % 6.3; MCH 31.7 pg (27.0-33.0); MCHC 34.2 % (32.0-36.0); MCV 92.9 fL (80-95); MPV 9.2 fL (8.0-11.0); Monocytes % 9.8; Neutrophils % 79.8; Nucleated RBC 0 %; Platelet Count 207 10^3/uL (130-400); RBC 4.79 10^6/uL (4.36-5.78); RDW 15.9 % (11.8-14.1); RDW-SD 53.1 fL; WBC 7.76 10^3/uL (4.4-10.8)
[2021-05-17 17:29] LABS: ALT 23 U/L (16-63); AST 14 U/L (15-37); Albumin 3.7 g/dL (3.4-5.0); Alkaline Phosphatase 95 U/L (46-116); Anion Gap 7.9 mmol/L (3-11); BUN 33 mg/dL (7-18); Bilirubin, Total 0.6 mg/dL (0.2-1.0); CO2 27.1 mmol/L (21.0-32.0); CREATININE 1.2 mg/dL (0.70-1.30); Chloride 105 mmol/L (98-107); Glucose 101 mg/dL (74-106); Magnesium 2.2 mg/dL (1.8-2.4); Potassium 3.7 mmol/L (3.5-5.1); Sodium 140 mmol/L (136-145); Total Protein 6.8 g/dL (6.4-8.2)
[2021-05-17 17:34] LABS: Troponin I < 0.05 ng/mL (<0.06)
[2021-05-17 18:01] LABS: D-Dimer 424 ng/mlFEU (<500)
== END 2021-05-17 20:04 | disposition home or self-care (01) ==
PROVIDERS: Emergency Provider Emergency Medicine; PCP Family Medicine
DX: R42 Dizziness and giddiness (principal); R25.2 Cramp and spasm
CPT/HCPCS: 36415; 80053; 93005; 99284; 83735; 84484; 85025; 85379; 93010

== ENCOUNTER 2021-06-02 01:48 | Outpatient (CLI) | payer MEDICARE, MEDICAID, SELFPAY ==
[2021-06-02] MEDS: Breeza Beverage 473 ML BTL PO ×2 (09:06→09:11)
[2021-06-02] MEDS: Omnipaque 350 MG/ML 100 ML BTL IJ (10:38)
[2021-06-02] MEDS: Normal Saline Flush 10 ML SYR IVP (10:39)
[2021-06-02] MEDS: Omnipaque 350 MG/ML 50 ML BTL IJ (10:40)
--- NOTE | 2021-06-02 10:43 | DI.CT_ITS ---
Exam(s) CT CHEST/ABD/PEL W EXAM: CT CHEST/ABD/PEL W CLINICAL HISTORY: RECTAL CANCER C20, ADENOCARCINOMA OF ANUS C21.0 TECHNIQUE: Imaging Protocol: Axial computed tomography images with coronal and sagittal reformatted images were created and reviewed CONTRAST MATERIAL: Intravenous: Omnipaque 350 Contrast volume:100 mL Oral: Yes COMPARISON: No exams were available for comparison FINDINGS: CHEST: Tracheobronchial tree: Patent where visualized. Pulmonary parenchyma: No consolidation or dominant measurable mass. No architectural distortion. No p ulmonary nodules. Visualized thyroid gland: There is a 1 cm hypodense nodule in the right lobe of the thyroid gland. No nemergent thyroid ultrasound is recommended for further evaluation. Mediastinum and Daniela: No dominant adenopathy or fluid collection. The esophagus is unremarkable. Pleura: No effusion or pneumothorax. Heart: The heart is not dilated. Mild coronary artery calcification. No pericardial effusion. Pulmonary arteries: Pulmonary arteries are insufficiently opacified for evaluation of pulmonary embol ic disease. Aorta: Thoracic aorta non-dilated. Lymph nodes: Within normal limits. Soft tissues: Unremarkable. Bones:No suspicious lytic or sclerotic lesions are present. ABDOMEN: Liver: Normal density. No measurable mass. Portal, Superior Mesenteric, and Splenic Veins: Unremarkable. Gallbladder and Biliary Tract: No radiodense calculus or dilation. Pancreas: Normal density, no abnormal calcifications or inflammatory process. Spleen: Normal. Adrenals: No masses seen. Kidneys: Normal size, contour and axis. No radiodense stones or obstructive uropathy. There are bilat eral renal cysts. No follow-up is recommended. Abdominal Aorta: Abdominal portion non-dilated. Mild atherosclerosis. Bowel: No evidence of bowel obstruction. There is a segment of bowel wall thickening in the terminal ileum. Mild infiltration of the surrounding fat is noted. Surgical clips are seen in the upper abd omen near the hiatus of the diaphragm. No evidence of appendicitis. There anastomotic clips seen at the rectosigmoid junction. There is diverticulosis seen in the colon but no evidence of acute diver ticulitis. Peritoneal Cavity: No ascites, collection or mesenteric inflammatory response. No free air. Lymph Nodes: Within normal limits. Bones: No suspicious lytic or sclerotic lesions are present. Soft Tissues: Unremarkable. PELVIS: Bladder: There is diffuse thickening of the wall of the urinary bladder. This may be due to underdis tention, but a cystitis cannot be excluded. Reproductive Organs: Unremarkable as visualized. Lymph Nodes: Within normal limits. Bones: No suspicious lytic or sclerotic lesions are present. IMPRESSION: 1. Postsurgical changes seen at the rectosigmoid junction. No evidence of a mass is seen in this reg ion. 2. Diffuse thickening of a segment of the distal ileum. An infectious/inflammatory process, typhliti s or radiation enteritis should be considered among among other etiologies. 3. Diffuse thickening of the wall of the urinary bladder. While this may be due to underdistention, cystitis cannot be excluded. 4. Colonic diverticulosis, but no evidence of acute diverticulitis. 5. No evidence of thoracic metastatic disease. RADIATION DOSE DELIVERED: 2,400.75mGy.cm Total DLP DATA REPOSITORY: All CT scans at this facility are submitted to the National Radiology Data Registry (NRDR) Dose Index Registry (DIR) with the [employer] (A[employer]). RADIATION OPTIMIZATION: All CT scans at this facility use at least one of these dose optimization te chniques: automated exposure control; mA and/or kV adjustment per patient size (includes targeted exa ms where dose is matched to clinical indication); or iterative reconstruction.
== END 2021-06-02 02:08 ==
LOC: DI 01:49
PROVIDERS: PCP Family Medicine; Visit Provider Nurse Practitioner Family
DX: C20 Malignant neoplasm of rectum (principal); C21.0 Malignant neoplasm of anus, unspecified; K63.89 Other specified diseases of intestine; N32.89 Other specified disorders of bladder; K57.30 Diverticulosis of large intestine without perforation or abscess without bleeding
CPT/HCPCS: 74177; 71260; J3490; Q9967

== ENCOUNTER 2021-06-18 03:44 | Outpatient (CLI) | payer MEDICARE, MEDICAID, SELFPAY ==
[2021-06-18 15:05] LABS: Abs Immature Grans 0.07 10^3/uL (0.0-0.06); Absolute Basophil Count 0.09 10^3/uL (0.0-0.2); Absolute Eosinophil Count 0.31 10^3/uL (0.0-0.7); Absolute Lymphocyte Count 0.62 10^3/uL (1.2-3.4); Absolute Monocyte Count 0.58 10^3/uL (0.1-0.8); Absolute Neutrophil Count 4.84 10^3/uL (1.2-6.7); Basophils % 1.4; Eosinophils % 4.8; HCT 47.5 % (40.0-50.0); HGB 15.5 g/dL (13.5-17.5); Immature Grans % 1.1; Lymphocytes % 9.5; MCH 32.8 pg (27.0-33.0); MCHC 32.6 % (32.0-36.0); MCV 100.6 fL (80-95); Monocytes % 8.9; Neutrophils % 74.3; Nucleated RBC 0 %; Platelet Count 211 10^3/uL (130-400); RBC 4.72 10^6/uL (4.36-5.78); RDW 14.7 % (11.8-14.1); RDW-SD 55.8 fL; WBC 6.51 10^3/uL (4.4-10.8)
[2021-06-18 15:11] LABS: ALT 20 U/L (16-63); AST 17 U/L (15-37); Albumin 3.8 g/dL (3.4-5.0); Alkaline Phosphatase 92 U/L (46-116); Anion Gap 5.2 mmol/L (3-11); BUN 19 mg/dL (7-18); Bilirubin, Total 0.6 mg/dL (0.2-1.0); CO2 31.8 mmol/L (21.0-32.0); CREATININE 1.1 mg/dL (0.70-1.30); Chloride 106 mmol/L (98-107); Glucose 96 mg/dL (74-106); Potassium 3.9 mmol/L (3.5-5.1); Sodium 143 mmol/L (136-145)
[2021-06-18 22:00] LABS: CEA 1.8 ng/mL (See Note)
== END 2021-06-18 03:45 | disposition home or self-care (01) ==
LOC: LBO 03:44
PROVIDERS: PCP Family Medicine; Visit Provider Internal Medicine Hematology & Oncology
DX: C21.0 Malignant neoplasm of anus, unspecified (principal); C15.5 Malignant neoplasm of lower third of esophagus
CPT/HCPCS: 36415; 80053; 82378; 85025

== ENCOUNTER 2021-07-09 03:51 | Outpatient (RCR) | payer MEDICARE, SELFPAY ==
[2021-07-09] MEDS: Normal Saline Flush 10 ML SYR IVP (09:05)
[2021-07-09 09:14] LABS: Abs Immature Grans 0.02 10^3/uL (0.0-0.06); Absolute Basophil Count 0.07 10^3/uL (0.0-0.2); Absolute Eosinophil Count 0.18 10^3/uL (0.0-0.7); Absolute Lymphocyte Count 0.54 10^3/uL (1.2-3.4); Absolute Monocyte Count 0.62 10^3/uL (0.1-0.8); Absolute Neutrophil Count 3.35 10^3/uL (1.2-6.7); Basophils % 1.5; Eosinophils % 3.8; HCT 47.9 % (40.0-50.0); HGB 16.4 g/dL (13.5-17.5); Immature Grans % 0.4; Lymphocytes % 11.3; MCH 34.1 pg (27.0-33.0); MCHC 34.2 % (32.0-36.0); MCV 99.6 fL (80-95); MPV 9.3 fL (8.0-11.0); Nucleated RBC 0 %; Platelet Count 219 10^3/uL (130-400); RBC 4.81 10^6/uL (4.36-5.78); RDW 12.6 % (11.8-14.1); RDW-SD 45.8 fL; WBC 4.78 10^3/uL (4.4-10.8)
[2021-07-09 09:30] LABS: ALT 23 U/L (16-63); AST 16 U/L (15-37); Albumin 3.6 g/dL (3.4-5.0); Alkaline Phosphatase 96 U/L (46-116); Anion Gap 7.5 mmol/L (3-11); BUN 16 mg/dL (7-18); Bilirubin, Total 0.6 mg/dL (0.2-1.0); CO2 28.5 mmol/L (21.0-32.0); CREATININE 1.2 mg/dL (0.70-1.30); Calcium 8.8 mg/dL (8.5-10.1); Chloride 104 mmol/L (98-107); Glucose 101 mg/dL (74-106); Potassium 3.9 mmol/L (3.5-5.1); Sodium 140 mmol/L (136-145); Total Protein 6.6 g/dL (6.4-8.2)
[2021-07-09 18:58] LABS: CEA 1.3 ng/mL (See Note)
== END 2021-07-12 23:59 | disposition home or self-care (01) ==
LOC: INF 03:51
PROVIDERS: Internal Medicine Hematology & Oncology; PCP Family Medicine; Visit Provider Internal Medicine Medical Oncology
DX: C20 Malignant neoplasm of rectum (principal); Z45.2 Encounter for adjustment and management of vascular access device
CPT/HCPCS: 36591; 80053; 82378; 85025

== ENCOUNTER 2021-07-29 16:33 | Emergency (ER) | payer MEDICARE, SELFPAY ==
[2021-07-29 16:46] VITALS: BP 122/76; PULSE 100; RESP 16; TEMP 37.3; O2SAT 98
[2021-07-29 17:42] LABS: Abs Immature Grans 0.03 10^3/uL (0.0-0.06); Absolute Basophil Count 0.04 10^3/uL (0.0-0.2); Absolute Eosinophil Count 0.11 10^3/uL (0.0-0.7); Absolute Lymphocyte Count 0.56 10^3/uL (1.2-3.4); Absolute Monocyte Count 0.69 10^3/uL (0.1-0.8); Absolute Neutrophil Count 3.34 10^3/uL (1.2-6.7); Basophils % 0.8; Eosinophils % 2.3; HCT 41.6 % (40.0-50.0); HGB 14.3 g/dL (13.5-17.5); Immature Grans % 0.6; Lymphocytes % 11.7; MCH 33.1 pg (27.0-33.0); MCHC 34.4 % (32.0-36.0); MCV 96.3 fL (80-95); MPV 9.3 fL (8.0-11.0); Monocytes % 14.5; Neutrophils % 70.1; Nucleated RBC 0 %; Platelet Count 140 10^3/uL (130-400); RBC 4.32 10^6/uL (4.36-5.78); RDW 11.7 % (11.8-14.1); RDW-SD 41.1 fL; WBC 4.77 10^3/uL (4.4-10.8)
[2021-07-29 17:57] LABS: ALT 21 U/L (16-63); AST 18 U/L (15-37); Albumin 3.4 g/dL (3.4-5.0); Alkaline Phosphatase 81 U/L (46-116); BUN 18 mg/dL (7-18); Bilirubin, Total 0.4 mg/dL (0.2-1.0); Calcium 8.5 mg/dL (8.5-10.1); Chloride 105 mmol/L (98-107); Glucose 133 mg/dL (74-106); Potassium 3.4 mmol/L (3.5-5.1); Sodium 138 mmol/L (136-145); Total Protein 6.2 g/dL (6.4-8.2)
--- NOTE | 2021-07-29 18:14 | ED.GENADUL_ITS ---
Discharge Plan Disposition Patient Disposition: HOME Condition: Stable Discharge Details Clinical Impression: GI mucositis Primary Care Provider: Jack Rouse ED Provider: Altagracia Zelaya Home Meds and New Rx's Prescriptions: New lidocaine 4 % cream 1 applic topical BID PRNQty: 15 0RF silver sulfadiazine [Silvadene] 1 % cream 1 applic topical BID Qty: 50 0RF Rx Instructions: apply a 1.5 mm thickness Continued simvastatin 20 MG tablet 20 mg PO DAILY 0RF naproxen 500 MG tablet 500 mg PO BID PRN PRNQty: 30 0RF Label Comments: not using fluoxetine 40 mg capsule 40 mg PO DAILY 0RF Label Comments: TAKE ONE CAPSULE BY MOUTH EVERY MORNING lamotrigine 150 mg tablet 150 mg PO DAILY 0RF Label Comments: TAKE ONE TABLET BY MOUTH EVERY DAY methylphenidate HCl 10 mg tablet 30 mg PO DAILY 0RF Label Comments: TAKE 3 TABLETS ORALLY ONCE A DAY ondansetron HCl 8 mg tablet 8 mg PO Q8H PRN PRN0RF Label Comments: TAKE ONE TABLET BY MOUTH EVERY 8 HOURS NEEDED FOR NAUSEA phenazopyridine 200 mg tablet 200 mg PO QID PRN0RF Label Comments: not taking hydrocodone-acetaminophen 10-325 mg tablet 1 - 2 tab PO Q6H PRN PRN0RF Label Comments: not using tamsulosin 0.4 mg capsule 0.4 mg PO HS 0RF Label Comments: not taking gabapentin 300 mg capsule 300 mg PO TID 0RF Label Comments: TAKE ONE CAPSULE BY MOUTH THREE TIMES A DAY vitamin B complex Capsule 1 cap PO HS 0RF Label Comments: TAKE ONE CAPSULE BY MOUTH EVERY DAY bupropion HCl 150 mg tablet extended release 24 hr 150 mg PO HS 0RF Label Comments: TAKE ONE TABLET BY MOUTH EVERY MORNING Vyvanse 70 mg capsule 70 mg PO DAILY 0RF Label Comments: TAKE ONE CAPSULE BY MOUTH EVERY MORNING levomefolate calcium 15 mg tablet 15 mg PO DAILY 0RF Label Comments: TAKE ONE TABLET BY MOUTH EVERY DAY cyanocobalamin (vitamin B-12) 1,000 mcg lozenge 1,000 mcg sublingual HS 0RF Label Comments: TAKE 1 TABLET UNDER THE TONGUE EVERY MORNING silver sulfadiazine [SSD] 1 % cream 1 applic TOPICAL BID 0RF Label Comments: APPLY TOPICALLY TO THE AFFECTED AREA TWO TIMES A DAY Triple Antibiotic 3.5mg-400 unit- 5,000 unit/gram ointment TOPICAL 0RF Label Comments: not using hydrocortisone 1 % cream with perineal applicator 1 applic topical BID 0RF Label Comments: not using Discharge Instructions Additional Instructions: Allow area to air dry as much as possible Make a mixture of hydrocortisone, Silvadene, and triple antibiotic ointment and apply at least twice daily You may apply lidocaine cream 3-4 times daily, a light layer to the affected region Do not use more frequently this medication can be systemically absorbed If you do have to drive, place an ABD pad with the medication in between your buttocks Follow-up with your oncologist at your schedule appointment and return earlier should you develop fever, abdominal pain, or with any new or worsening complaints Referrals: Jack Rouse [Primary Care Provider] - Discharge Data Discharge Date/Time-TO BE ENTERED AT DEPARTURE: 07/29/21 19:10 Medical Decision Making Labs reassuring Potassium of 3.4, no neutropenia Case discussed with Dr. Ramirez, on-call oncologist and recommend Silvadene, hydrocortisone, triple antibiotic ointment 2-3 times a day with lidocaine as needed for discomfort He has an appointment with oncology next week he will keep this appointment and return earlier should he have new or worsening complaints He is afebrile and nontoxic at time of discharge home Vitals stable at time of discharge home Potassium was supplemented 20 milliequivalents Medical Records Medical records reviewed: Yes I reviewed the patient's medical records. Lab Data Lab results reviewed: Yes I reviewed the patient's lab results. HPI General Date/Time Provider Initiated Documentation: 07/29/21 16:33 . HPI Narrative: This 66-year-old gentleman with history of colon cancer, receiving chemotherapy and recently completed radiation presents with report of possible abscess to his rectum. He states that the pain is excruciating. It started approximately 3 days ago. He denies any diarrhea or bloody stools. He denies any fever or chills. His last chemotherapy was on Monday of last week. He denies any abdominal discomfort. He denies chest pain or shortness of breath. He denies any dizziness or weakness. He states he had similar symptoms in the past but has not been quite as painful. Related Data Home Medications Medication Instructions Recorded Confirmed naproxen 500 mg tablet 500 mg PO BID PRN PRN #30 tablet 06/04/14 05/17/21 simvastatin 20 mg tablet 20 mg PO DAILY 06/04/14 07/29/21 bupropion HCl 150 mg 24 hr tablet, 150 mg PO HS 05/17/21 07/29/21 extended release cyanocobalamin (vitamin B-12) 1,000 mcg SUBLINGUAL HS 05/17/21 07/29/21 1,000 mcg sublingual lozenge fluoxetine 40 mg capsule 40 mg PO DAILY 05/17/21 07/29/21 gabapentin 300 mg capsule 300 mg PO TID 05/17/21 07/29/21 hydrocodone 10 mg-acetaminophen 1 - 2 tab PO Q6H PRN PRN 05/17/21 05/17/21 325 mg tablet hydrocortisone 1 % topical cream 1 applic TOPICAL BID 05/17/21 05/17/21 with perineal applicator lamotrigine 150 mg tablet 150 mg PO DAILY 05/17/21 07/29/21 levomefolate calcium 15 mg tablet 15 mg PO DAILY 05/17/21 07/29/21 lisdexamfetamine 70 mg capsule 70 mg PO DAILY 05/17/21 07/29/21 (Vyvanse) methylphenidate HCl 10 mg tablet 30 mg PO DAILY 05/17/21 07/29/21 neomycin-bacitracn Zn-polymyx 3.5 TOPICAL 05/17/21 05/17/21 mg-400 unit-5,000 unit/gram top oint (Triple Antibiotic) ondansetron HCl 8 mg tablet 8 mg PO Q8H PRN PRN 05/17/21 07/29/21 phenazopyridine 200 mg tablet 200 mg PO QID PRN 05/17/21 05/17/21 silver sulfadiazine 1 % topical 1 applic TOPICAL BID 05/17/21 07/29/21 cream (SSD) tamsulosin 0.4 mg capsule 0.4 mg PO HS 05/17/21 05/17/21 vitamin B complex 1 cap PO HS 05/17/21 07/29/21 lidocaine 4 % topical cream 1 applic TOPICAL BID PRN #15 g 07/29/21 silver sulfadiazine 1 % topical 1 applic TOPICAL BID #50 g 07/29/21 cream (Silvadene) Previous Rx's Medication Instructions Recorded naproxen 500 mg tablet 500 mg PO BID PRN PRN #30 tablet 06/04/14 lidocaine 4 % topical cream 1 applic TOPICAL BID PRN #15 g 07/29/21 silver sulfadiazine 1 % topical 1 applic TOPICAL BID #50 g 07/29/21 cream (Silvadene) Allergies Allergy/AdvReac Type Severity Reaction Status Date / Time No Known Allergies Allergy Unverified 07/29/21 16:53 General Stated Complaint: Cellulitis WEST: 3 Review of Systems All systems reviewed & are unremarkable except as noted in HPI and below PFSH All Active Problems (Updated 07/29/21 @ 19:03 by JUANJOSE Shin) Neoplasm of unspecified behavior of bone, soft tissue, and skin (Chronic) Deviated nasal septum (Chronic) Lightheaded (Acute) GI mucositis (Acute) Medical History (Updated 07/29/21 @ 19:03 by JUANJOSE Shin) Arthritis Carpal tunnel syndrome Colon cancer Neuropathy Surgical History (Updated 05/17/21 @ 16:05 by Johanna Conteh) History of colon resection History of esophageal surgery Social History Smoking/Tobacco Use Status: Never Smoking risk assessment performed?: Yes Alcohol Intake: never Drug use: Never Substance use type: does not use Do you feel safe at home: Yes Do you feel safe in your relationship?: Yes Exam Const General: cooperative and comfortable Orientation: alert and oriented x3 Eyes Pupils: PERRL Resp Effort & Inspection: normal respiratory effort Cardio Rate: regular rate Rhythm: regular rhythm GI Other: No abdominal tenderness Other: Perianal ulcerations noted, circumferential, approximately 3 inch region excoriation, no abscess visualized, no serosanguineous or purulent drainage Skin General skin exam: no rashes or lesions noted Neuro General: patient alert and patient oriented x3 Course Vital Signs Vital signs: Vital Signs Temperature 37.3 C 07/29/21 16:46 Pulse 100 H 07/29/21 16:46 Respiratory Rate 16 07/29/21 16:46 Blood Pressure 122/76 07/29/21 16:46 Pulse Oximetry 98 07/29/21 16:46 Temperature 37.3 C 07/29/21 16:46 Temperature Source Skin 07/29/21 16:46 Pulse 100 H 07/29/21 16:46 Respiratory Rate 16 07/29/21 16:46 Respiratory Effort 07/29/21 16:58 Blood Pressure 122/76 07/29/21 16:46 Blood Pressure Position Sitting 07/29/21 16:46 Pulse Oximetry 98 02/17/22 16:46 Oxygen Delivery Method Room Air 07/29/21 16:46 Oxygen Flow Rate 0 07/29/21 16:46 Pain Level 8 07/29/21 16:46 Comment 07/29/21 16:46 Lab/Test Results Lab/Test Results: Laboratory Tests Range/Units 07/29/21 07/29/21 17:25 17:25 WBC (4.4-10.8) 10^3/uL 4.77 RBC (4.36-5.78) 10^6/uL 4.32 L Hgb (13.5-17.5) g/dL 14.3 Hct (40.0-50.0) % 41.6 MCV (80-95) fL 96.3 H MCH (27.0-33.0) pg 33.1 H MCHC (32.0-36.0) % 34.4 RDW (11.8-14.1) % 11.7 L Plt Count (130-400) 10^3/uL 140 MPV (8.0-11.0) fL 9.3 Immature Gran % 0.6 Neutrophils % 70.1 Lymphocytes % 11.7 Monocytes % 14.5 Eosinophils % 2.3 Basophils % 0.8 Nucleated RBC % % 0 Absolute Neutrophils (1.2-6.7) 10^3/uL 3.34 Absolute Lymphocytes (1.2-3.4) 10^3/uL 0.56 L Absolute Monocytes (0.1-0.8) 10^3/uL 0.69 Absolute Eosinophils (0.0-0.7) 10^3/uL 0.11 Absolute Basophils (0.0-0.2) 10^3/uL 0.04 Sodium (136-145) mmol/L 138 Potassium (3.5-5.1) mmol/L 3.4 L Chloride (98-107) mmol/L 105 Carbon Dioxide (21.0-32.0) mmol/L 27.0 Anion Gap (3-11) mmol/L 6.0 BUN (7-18) mg/dL 18 Creatinine (0.70-1.30) mg/dL 1.0 Estimated GFR/1.73 m2 (mL/min/1.73m2) >= 60.00 Glucose (74-106) mg/dL 133 H Calcium (8.5-10.1) mg/dL 8.5 Total Bilirubin (0.2-1.0) mg/dL 0.4 AST (15-37) U/L 18 ALT (16-63) U/L 21 Alkaline Phosphatase (46-116) U/L 81 Total Protein (6.4-8.2) g/dL 6.2 L Albumin (3.4-5.0) g/dL 3.4
[2021-07-29 18:31] VITALS: BP 127/82; PULSE 88; RESP 18; O2SAT 98
== END 2021-07-29 19:10 | disposition home or self-care (01) ==
PROVIDERS: Emergency Provider Physician Assistant; PCP Family Medicine
DX: K92.81 Gastrointestinal mucositis (ulcerative) (principal); C18.9 Malignant neoplasm of colon, unspecified
CPT/HCPCS: 80053; 99283; 85025; J3490

== ENCOUNTER 2021-08-06 03:21 | Outpatient (RCR) | payer MEDICARE, SELFPAY ==
[2021-07-23] MEDS: Normal Saline Flush 10 ML SYR IVP (08:30)
[2021-07-23 08:41] LABS: Abs Immature Grans 0.01 10^3/uL (0.0-0.06); Absolute Basophil Count 0.06 10^3/uL (0.0-0.2); Absolute Eosinophil Count 0.15 10^3/uL (0.0-0.7); Absolute Lymphocyte Count 0.47 10^3/uL (1.2-3.4); Absolute Monocyte Count 0.58 10^3/uL (0.1-0.8); Absolute Neutrophil Count 3.28 10^3/uL (1.2-6.7); Basophils % 1.3; Eosinophils % 3.3; HCT 46.1 % (40.0-50.0); HGB 15.6 g/dL (13.5-17.5); Immature Grans % 0.2; Lymphocytes % 10.3; MCH 33.3 pg (27.0-33.0); MCHC 33.8 % (32.0-36.0); MCV 98.5 fL (80-95); MPV 9.4 fL (8.0-11.0); Monocytes % 12.7; Neutrophils % 72.2; Nucleated RBC 0 %; Platelet Count 133 10^3/uL (130-400); RBC 4.68 10^6/uL (4.36-5.78); RDW 12.2 % (11.8-14.1); WBC 4.55 10^3/uL (4.4-10.8)
[2021-07-23 08:57] LABS: ALT 25 U/L (16-63); AST 18 U/L (15-37); Albumin 3.7 g/dL (3.4-5.0); Alkaline Phosphatase 94 U/L (46-116); Anion Gap 7.4 mmol/L (3-11); BUN 24 mg/dL (7-18); Bilirubin, Total 0.5 mg/dL (0.2-1.0); CO2 27.6 mmol/L (21.0-32.0); CREATININE 1.3 mg/dL (0.70-1.30); Calcium 8.7 mg/dL (8.5-10.1); Chloride 105 mmol/L (98-107); Estimated GFR 55.06 (mL/min/1.73m2); Glucose 143 mg/dL (74-106); Potassium 3.7 mmol/L (3.5-5.1); Sodium 140 mmol/L (136-145); Total Protein 6.6 g/dL (6.4-8.2)
[2021-07-23 11:11] LABS: Vitamin B12 618 pg/mL (193-986)
[2021-07-23 17:25] LABS: CEA 1.4 ng/mL (See Note)
[2021-08-06] MEDS: Normal Saline Flush 10 ML SYR IVP (09:36)
[2021-08-06 09:42] LABS: Abs Immature Grans 0.03 10^3/uL (0.0-0.06); Absolute Basophil Count 0.05 10^3/uL (0.0-0.2); Absolute Eosinophil Count 0.27 10^3/uL (0.0-0.7); Absolute Monocyte Count 0.55 10^3/uL (0.1-0.8); Basophils % 1.1; Eosinophils % 5.7; HGB 15.7 g/dL (13.5-17.5); Immature Grans % 0.6; Lymphocytes % 10.6; MCH 33.1 pg (27.0-33.0); MCHC 34.1 % (32.0-36.0); Monocytes % 11.7; Neutrophils % 70.3; Nucleated RBC 0 %; Platelet Count 120 10^3/uL (130-400); RBC 4.74 10^6/uL (4.36-5.78); RDW 12.5 % (11.8-14.1); RDW-SD 43.8 fL
[2021-08-06 09:53] LABS: ALT 29 U/L (16-63); AST 20 U/L (15-37); Albumin 3.6 g/dL (3.4-5.0); Alkaline Phosphatase 85 U/L (46-116); Anion Gap 7.8 mmol/L (3-11); BUN 24 mg/dL (7-18); Bilirubin, Total 0.6 mg/dL (0.2-1.0); CO2 28.2 mmol/L (21.0-32.0); CREATININE 1.3 mg/dL (0.70-1.30); Calcium 9.2 mg/dL (8.5-10.1); Chloride 105 mmol/L (98-107); Estimated GFR 55.06 (mL/min/1.73m2); Glucose 152 mg/dL (74-106); Potassium 4.1 mmol/L (3.5-5.1); Sodium 141 mmol/L (136-145); Total Protein 6.7 g/dL (6.4-8.2)
[2021-08-06 21:11] LABS: CEA 1.2 ng/mL (See Note)
== END 2021-08-09 23:59 | disposition home or self-care (01) ==
LOC: INF 03:21
PROVIDERS: Internal Medicine Hematology & Oncology; PCP Family Medicine; Visit Provider Internal Medicine Medical Oncology
DX: C20 Malignant neoplasm of rectum (principal); Z45.2 Encounter for adjustment and management of vascular access device; G60.8 Other hereditary and idiopathic neuropathies
CPT/HCPCS: 36591; 80053; 82378; 82607; 85025

== ENCOUNTER 2021-09-03 02:59 | Outpatient (RCR) | payer MEDICARE, SELFPAY ==
[2021-08-20] MEDS: Normal Saline Flush 10 ML SYR IVP (08:32)
[2021-08-20 08:56] LABS: Abs Immature Grans 0.04 10^3/uL (0.0-0.06); Absolute Basophil Count 0.05 10^3/uL (0.0-0.2); Absolute Eosinophil Count 0.18 10^3/uL (0.0-0.7); Absolute Monocyte Count 0.53 10^3/uL (0.1-0.8); Absolute Neutrophil Count 3.33 10^3/uL (1.2-6.7); Eosinophils % 3.7; HCT 45.9 % (40.0-50.0); HGB 15.7 g/dL (13.5-17.5); Immature Grans % 0.8; Lymphocytes % 14.5; MCH 32.7 pg (27.0-33.0); MCHC 34.2 % (32.0-36.0); MCV 95.6 fL (80-95); MPV 9.1 fL (8.0-11.0); Nucleated RBC 0 %; Platelet Count 147 10^3/uL (130-400); RDW 12.9 % (11.8-14.1); RDW-SD 43.9 fL; WBC 4.83 10^3/uL (4.4-10.8)
[2021-08-20 09:08] LABS: ALT 22 U/L (16-63); AST 17 U/L (15-37); Albumin 3.3 g/dL (3.4-5.0); Alkaline Phosphatase 89 U/L (46-116); Anion Gap 8.5 mmol/L (3-11); BUN 19 mg/dL (7-18); Bilirubin, Total 0.6 mg/dL (0.2-1.0); CO2 27.5 mmol/L (21.0-32.0); CREATININE 1.2 mg/dL (0.70-1.30); Calcium 8.8 mg/dL (8.5-10.1); Chloride 105 mmol/L (98-107); Glucose 153 mg/dL (74-106); Potassium 3.7 mmol/L (3.5-5.1); Sodium 141 mmol/L (136-145); Total Protein 6.2 g/dL (6.4-8.2)
[2021-08-20 18:24] LABS: CEA 1.3 ng/mL (See Note)
[2021-09-03 10:16] LABS: Abs Immature Grans 0.02 10^3/uL (0.0-0.06); Absolute Basophil Count 0.06 10^3/uL (0.0-0.2); Absolute Eosinophil Count 0.28 10^3/uL (0.0-0.7); Absolute Lymphocyte Count 0.63 10^3/uL (1.2-3.4); Absolute Monocyte Count 0.63 10^3/uL (0.1-0.8); Absolute Neutrophil Count 3.95 10^3/uL (1.2-6.7); Basophils % 1.1; HCT 45.6 % (40.0-50.0); HGB 15.4 g/dL (13.5-17.5); Immature Grans % 0.4; Lymphocytes % 11.3; MCH 32.4 pg (27.0-33.0); MCHC 33.8 % (32.0-36.0); MPV 9.3 fL (8.0-11.0); Monocytes % 11.3; Neutrophils % 70.9; Nucleated RBC 0 %; Platelet Count 127 10^3/uL (130-400); RBC 4.75 10^6/uL (4.36-5.78); RDW-SD 48.6 fL; WBC 5.57 10^3/uL (4.4-10.8)
[2021-09-03 10:34] LABS: ALT 25 U/L (16-63); AST 17 U/L (15-37); Albumin 3.6 g/dL (3.4-5.0); Alkaline Phosphatase 88 U/L (46-116); BUN 18 mg/dL (7-18); Bilirubin, Total 0.7 mg/dL (0.2-1.0); CREATININE 1.2 mg/dL (0.70-1.30); Calcium 8.8 mg/dL (8.5-10.1); Chloride 107 mmol/L (98-107); Glucose 118 mg/dL (74-106); Potassium 3.9 mmol/L (3.5-5.1); Sodium 141 mmol/L (136-145); Total Protein 6.4 g/dL (6.4-8.2)
[2021-09-03] MEDS: Normal Saline Flush 10 ML SYR IVP (11:16)
[2021-09-03 21:08] LABS: CEA 1.2 ng/mL (See Note)
== END 2021-09-09 23:59 | disposition home or self-care (01) ==
LOC: INF 02:59
PROVIDERS: Internal Medicine Hematology & Oncology; PCP Family Medicine; Visit Provider Internal Medicine Medical Oncology
DX: C20 Malignant neoplasm of rectum (principal)
CPT/HCPCS: 36591; 80053; 82378; 85025

== ENCOUNTER 2021-09-17 01:43 | Outpatient (RCR) | payer MEDICARE, MEDICAID, SELFPAY ==
[2021-09-17] MEDS: Normal Saline Flush 10 ML SYR IVP (10:02)
[2021-09-17] MEDS: Heparin 500 UNITS/5 ML SYRINGE IV (10:02)
[2021-09-17 10:15] LABS: Abs Immature Grans 0.06 10^3/uL (0.0-0.06); Absolute Basophil Count 0.08 10^3/uL (0.0-0.2); Absolute Eosinophil Count 0.17 10^3/uL (0.0-0.7); Absolute Lymphocyte Count 0.59 10^3/uL (1.2-3.4); Absolute Monocyte Count 0.58 10^3/uL (0.1-0.8); Absolute Neutrophil Count 4.68 10^3/uL (1.2-6.7); Basophils % 1.3; Eosinophils % 2.8; HCT 45.2 % (40.0-50.0); HGB 15.3 g/dL (13.5-17.5); Lymphocytes % 9.6; MCH 32.8 pg (27.0-33.0); MCHC 33.8 % (32.0-36.0); MPV 9.2 fL (8.0-11.0); Monocytes % 9.4; Neutrophils % 75.9; Nucleated RBC 0 %; Platelet Count 157 10^3/uL (130-400); RBC 4.66 10^6/uL (4.36-5.78); RDW 15.1 % (11.8-14.1); RDW-SD 52.6 fL; WBC 6.16 10^3/uL (4.4-10.8)
[2021-09-17 10:32] LABS: ALT 22 U/L (16-63); AST 15 U/L (15-37); Albumin 3.4 g/dL (3.4-5.0); Alkaline Phosphatase 89 U/L (46-116); Anion Gap 5.6 mmol/L (3-11); BUN 18 mg/dL (7-18); Bilirubin, Total 0.9 mg/dL (0.2-1.0); CO2 28.4 mmol/L (21.0-32.0); CREATININE 1.2 mg/dL (0.70-1.30); Calcium 8.5 mg/dL (8.5-10.1); Chloride 107 mmol/L (98-107); Glucose 129 mg/dL (74-106); Potassium 3.3 mmol/L (3.5-5.1); Sodium 141 mmol/L (136-145)
== END 2021-10-09 23:59 | disposition home or self-care (01) ==
LOC: INF 01:43
PROVIDERS: PCP Family Medicine; Visit Provider Internal Medicine Medical Oncology
DX: C20 Malignant neoplasm of rectum (principal); Z45.2 Encounter for adjustment and management of vascular access device
CPT/HCPCS: 36591; 80053; 82378; 85025

== ENCOUNTER 2022-01-07 01:00 | Outpatient (RCR) | payer MEDICARE, MEDICAID, SELFPAY ==
[2021-12-10 13:56] LABS: Abs Immature Grans 0.02 10^3/uL (0.0-0.06); Absolute Basophil Count 0.09 10^3/uL (0.0-0.2); Absolute Eosinophil Count 0.29 10^3/uL (0.0-0.7); Absolute Lymphocyte Count 0.84 10^3/uL (1.2-3.4); Absolute Neutrophil Count 4.36 10^3/uL (1.2-6.7); Basophils % 1.5; Eosinophils % 4.8; HCT 42.8 % (40.0-50.0); HGB 14.8 g/dL (13.5-17.5); Immature Grans % 0.3; Lymphocytes % 13.8; MCH 31.7 pg (27.0-33.0); MCHC 34.6 % (32.0-36.0); MCV 92 fL (80-95); MPV 9.1 fL (8.0-11.0); Monocytes % 8.2; Neutrophils % 71.4; Platelet Count 241 10^3/uL (130-400); RBC 4.67 10^6/uL (4.36-5.78); RDW 12.1 % (11.8-14.1); RDW-SD 41.1 fL
[2021-12-10] MEDS: Normal Saline Flush 10 ML SYR IVP (14:06)
[2021-12-10] MEDS: Heparin 500 UNITS/5 ML SYRINGE IV (14:07)
[2021-12-10 14:10] LABS: ALT 27 U/L (16-63); AST 20 U/L (15-37); Albumin 3.7 g/dL (3.4-5.0); Alkaline Phosphatase 105 U/L (46-116); Anion Gap 5.9 mmol/L (3-11); BUN 29 mg/dL (7-18); Bilirubin, Total 0.4 mg/dL (0.2-1.0); CO2 28.1 mmol/L (21.0-32.0); Chloride 106 mmol/L (98-107); Glucose 99 mg/dL (74-106); Potassium 3.9 mmol/L (3.5-5.1); Sodium 140 mmol/L (136-145); Total Protein 6.9 g/dL (6.4-8.2)
[2021-12-10 23:21] LABS: CEA 0.8 ng/mL (See Note)
[2022-01-07] MEDS: Normal Saline Flush 10 ML SYR IVP (10:23)
[2022-01-07 10:31] LABS: Abs Immature Grans 0.03 10^3/uL (0.0-0.06); Absolute Basophil Count 0.07 10^3/uL (0.0-0.2); Absolute Eosinophil Count 0.19 10^3/uL (0.0-0.7); Absolute Lymphocyte Count 1.33 10^3/uL (1.2-3.4); Absolute Monocyte Count 0.62 10^3/uL (0.1-0.8); Absolute Neutrophil Count 5.53 10^3/uL (1.2-6.7); Basophils % 0.9; Eosinophils % 2.4; HCT 43.5 % (40.0-50.0); HGB 14.8 g/dL (13.5-17.5); Immature Grans % 0.4; Lymphocytes % 17.1; MCH 30.8 pg (27.0-33.0); MCV 91 fL (80-95); MPV 9.4 fL (8.0-11.0); Neutrophils % 71.2; Platelet Count 219 10^3/uL (130-400); RDW 12.6 % (11.8-14.1); RDW-SD 41.8 fL; WBC 7.77 10^3/uL (4.4-10.8)
[2022-01-07 10:46] LABS: ALT 23 U/L (16-63); AST 16 U/L (15-37); Albumin 3.8 g/dL (3.4-5.0); Alkaline Phosphatase 96 U/L (46-116); Anion Gap 7.6 mmol/L (3-11); BUN 28 mg/dL (7-18); Bilirubin, Total 0.6 mg/dL (0.2-1.0); CO2 27.4 mmol/L (21.0-32.0); CREATININE 1.3 mg/dL (0.70-1.30); Calcium 9.2 mg/dL (8.5-10.1); Chloride 105 mmol/L (98-107); Estimated GFR 55.06 (mL/min/1.73m2); Glucose 148 mg/dL (74-106); Potassium 3.8 mmol/L (3.5-5.1); Sodium 140 mmol/L (136-145); Total Protein 6.7 g/dL (6.4-8.2)
== END 2022-01-09 23:59 | disposition home or self-care (01) ==
LOC: INF 01:00
PROVIDERS: PCP Family Medicine; Visit Provider Internal Medicine Hematology & Oncology
DX: C21.0 Malignant neoplasm of anus, unspecified (principal); Z45.2 Encounter for adjustment and management of vascular access device
CPT/HCPCS: 36591; 80053; 82378; 85025

== ENCOUNTER 2022-02-06 00:39 | Outpatient (RCR) | payer MEDICARE, MEDICAID, SELFPAY ==
[2022-01-21] MEDS: Normal Saline Flush 10 ML SYR IVP (08:39)
[2022-01-21 08:50] LABS: Abs Immature Grans 0.03 10^3/uL (0.0-0.06); Absolute Basophil Count 0.06 10^3/uL (0.0-0.2); Absolute Eosinophil Count 0.29 10^3/uL (0.0-0.7); Absolute Lymphocyte Count 1.01 10^3/uL (1.2-3.4); Basophils % 1.1; Eosinophils % 5.2; HCT 42.1 % (40.0-50.0); HGB 14.1 g/dL (13.5-17.5); Immature Grans % 0.5; Lymphocytes % 18.1; MCH 30.5 pg (27.0-33.0); MCHC 33.5 % (32.0-36.0); MCV 91 fL (80-95); MPV 9.2 fL (8.0-11.0); Monocytes % 10.7; Neutrophils % 64.4; Platelet Count 183 10^3/uL (130-400); RBC 4.62 10^6/uL (4.36-5.78); RDW-SD 45.1 fL; WBC 5.59 10^3/uL (4.4-10.8)
[2022-01-21 09:11] LABS: ALT 24 U/L (16-63); AST 17 U/L (15-37); Albumin 3.5 g/dL (3.4-5.0); Alkaline Phosphatase 82 U/L (46-116); BUN 17 mg/dL (7-18); Bilirubin, Total 0.7 mg/dL (0.2-1.0); CREATININE 1.2 mg/dL (0.70-1.30); Calcium 8.9 mg/dL (8.5-10.1); Chloride 107 mmol/L (98-107); Glucose 147 mg/dL (74-106); Potassium 3.6 mmol/L (3.5-5.1); Sodium 143 mmol/L (136-145); Total Protein 6.4 g/dL (6.4-8.2)
[2022-01-21 20:49] LABS: CEA 0.8 ng/mL (See Note)
[2022-01-23 12:21] VITALS: BP 134/79; PULSE 68; RESP 20; TEMP 35.8; O2SAT 100
[2022-01-23] MEDS: Heparin 500 UNITS/5 ML SYRINGE IV (12:23)
[2022-01-23] MEDS: Normal Saline Flush 10 ML SYR IVP (12:23)
[2022-02-04] MEDS: Normal Saline Flush 10 ML SYR IVP (10:00)
[2022-02-04 10:06] LABS: Abs Immature Grans 0.02 10^3/uL (0.0-0.06); Absolute Basophil Count 0.09 10^3/uL (0.0-0.2); Absolute Eosinophil Count 0.36 10^3/uL (0.0-0.7); Absolute Lymphocyte Count 1.08 10^3/uL (1.2-3.4); Absolute Monocyte Count 0.72 10^3/uL (0.1-0.8); Absolute Neutrophil Count 3.23 10^3/uL (1.2-6.7); Basophils % 1.6; Eosinophils % 6.5; HCT 43.7 % (40.0-50.0); HGB 15.1 g/dL (13.5-17.5); Immature Grans % 0.4; Lymphocytes % 19.6; MCH 31.1 pg (27.0-33.0); MCHC 34.6 % (32.0-36.0); MCV 90 fL (80-95); MPV 9.1 fL (8.0-11.0); Monocytes % 13.1; Neutrophils % 58.8; Platelet Count 168 10^3/uL (130-400); RBC 4.85 10^6/uL (4.36-5.78); RDW-SD 45.2 fL
[2022-02-04 10:20] LABS: ALT 26 U/L (16-63); AST 21 U/L (15-37); Albumin 3.9 g/dL (3.4-5.0); Alkaline Phosphatase 93 U/L (46-116); BUN 31 mg/dL (7-18); Bilirubin, Total 0.7 mg/dL (0.2-1.0); Calcium 9.1 mg/dL (8.5-10.1); Chloride 106 mmol/L (98-107); Glucose 94 mg/dL (74-106); Potassium 3.9 mmol/L (3.5-5.1); Sodium 144 mmol/L (136-145); Total Protein 7.1 g/dL (6.4-8.2)
[2022-02-04 19:14] LABS: CEA 1.1 ng/mL (See Note)
[2022-02-06 13:23] VITALS: BP 146/68; PULSE 96; RESP 20; TEMP 35.9; O2SAT 100
[2022-02-06] MEDS: Normal Saline Flush 10 ML SYR IVP (13:26)
[2022-02-06] MEDS: Heparin 500 UNITS/5 ML SYRINGE IV (13:27)
== END 2022-02-09 23:59 | disposition home or self-care (01) ==
LOC: INF 00:39
PROVIDERS: PCP Family Medicine; Visit Provider Internal Medicine Hematology & Oncology
DX: C20 Malignant neoplasm of rectum (principal); Z45.2 Encounter for adjustment and management of vascular access device
CPT/HCPCS: 36591; 80053; 96523; 82378; 85025

== ENCOUNTER 2022-03-04 00:35 | Outpatient (RCR) | payer MEDICARE, MEDICAID, SELFPAY ==
[2022-02-10 00:08] VITALS: BP 146/68; PULSE 96; RESP 20; TEMP 35.9
[2022-02-18] MEDS: Normal Saline Flush 10 ML SYR IVP (12:30)
[2022-02-18 12:37] LABS: Abs Immature Grans 0.03 10^3/uL (0.0-0.06); Absolute Basophil Count 0.05 10^3/uL (0.0-0.2); Absolute Eosinophil Count 0.24 10^3/uL (0.0-0.7); Absolute Monocyte Count 0.41 10^3/uL (0.1-0.8); Absolute Neutrophil Count 4.75 10^3/uL (1.2-6.7); Basophils % 0.8; Eosinophils % 3.8; HCT 45.5 % (40.0-50.0); HGB 15.6 g/dL (13.5-17.5); Immature Grans % 0.5; Lymphocytes % 14.1; MCH 30.8 pg (27.0-33.0); MCHC 34.3 % (32.0-36.0); MCV 90 fL (80-95); MPV 9.1 fL (8.0-11.0); Monocytes % 6.4; Neutrophils % 74.4; Platelet Count 197 10^3/uL (130-400); RBC 5.07 10^6/uL (4.36-5.78); RDW 14.7 % (11.8-14.1); RDW-SD 47.8 fL; WBC 6.38 10^3/uL (4.4-10.8)
[2022-02-18 12:52] LABS: ALT 23 U/L (16-63); AST 15 U/L (15-37); Albumin 3.6 g/dL (3.4-5.0); Alkaline Phosphatase 93 U/L (46-116); Anion Gap 7.6 mmol/L (3-11); BUN 19 mg/dL (7-18); Bilirubin, Total 0.8 mg/dL (0.2-1.0); CO2 29.4 mmol/L (21.0-32.0); CREATININE 1.4 mg/dL (0.70-1.30); Calcium 9.3 mg/dL (8.5-10.1); Chloride 104 mmol/L (98-107); Estimated GFR 55.09 (mL/min/1.73m2); Glucose 167 mg/dL (74-106); Potassium 3.7 mmol/L (3.5-5.1); Sodium 141 mmol/L (136-145)
[2022-02-18 22:39] LABS: CEA 1.2 ng/mL (See Note)
[2022-02-20 14:14] VITALS: BP 129/79; PULSE 91; RESP 16; TEMP 36.8; O2SAT 97
[2022-02-20] MEDS: Normal Saline Flush 10 ML SYR IVP (14:17)
[2022-02-20] MEDS: Heparin 500 UNITS/5 ML SYRINGE IV (14:18)
[2022-03-04] MEDS: Normal Saline Flush 10 ML SYR IVP (08:16)
[2022-03-04 08:39] LABS: Abs Immature Grans 0.04 10^3/uL (0.0-0.06); Absolute Basophil Count 0.06 10^3/uL (0.0-0.2); Absolute Eosinophil Count 0.33 10^3/uL (0.0-0.7); Absolute Lymphocyte Count 0.86 10^3/uL (1.2-3.4); Absolute Monocyte Count 0.42 10^3/uL (0.1-0.8); Absolute Neutrophil Count 4.27 10^3/uL (1.2-6.7); Eosinophils % 5.5; HCT 45.8 % (40.0-50.0); HGB 15.8 g/dL (13.5-17.5); Immature Grans % 0.7; Lymphocytes % 14.4; MCH 31.8 pg (27.0-33.0); MCHC 34.5 % (32.0-36.0); MCV 92 fL (80-95); Neutrophils % 71.4; Platelet Count 157 10^3/uL (130-400); RBC 4.97 10^6/uL (4.36-5.78); RDW 15.3 % (11.8-14.1); RDW-SD 51.1 fL; WBC 5.98 10^3/uL (4.4-10.8)
[2022-03-04 08:53] LABS: ALT 21 U/L (16-63); AST 14 U/L (15-37); Albumin 3.8 g/dL (3.4-5.0); Alkaline Phosphatase 104 U/L (46-116); Anion Gap 6.8 mmol/L (3-11); BUN 31 mg/dL (7-18); Bilirubin, Total 1.1 mg/dL (0.2-1.0); CO2 30.2 mmol/L (21.0-32.0); CREATININE 1.4 mg/dL (0.70-1.30); Calcium 9.6 mg/dL (8.5-10.1); Chloride 104 mmol/L (98-107); Estimated GFR 55.09 (mL/min/1.73m2); Glucose 151 mg/dL (74-106); Potassium 4.3 mmol/L (3.5-5.1); Sodium 141 mmol/L (136-145); Total Protein 7.1 g/dL (6.4-8.2)
[2022-03-06 10:30] VITALS: BP 141/86; PULSE 97; RESP 20; TEMP 36.1; O2SAT 100
[2022-03-06] MEDS: Heparin 500 UNITS/5 ML SYRINGE IV (10:32)
[2022-03-06] MEDS: Normal Saline Flush 10 ML SYR IVP (10:32)
== END 2022-03-11 23:59 | disposition home or self-care (01) ==
LOC: INF 00:35
PROVIDERS: PCP Family Medicine; Visit Provider Internal Medicine Hematology & Oncology
DX: C20 Malignant neoplasm of rectum (principal); Z45.2 Encounter for adjustment and management of vascular access device
CPT/HCPCS: 36415; 36591; 80053; 96523; 82378; 85025

== ENCOUNTER → 2022-04-08 00:52 | Outpatient (CLI) | payer MEDICARE, MEDICAID, SELFPAY ==
--- NOTE | 2022-04-08 13:00 | DI.CT_ITS ---
Exam(s) CT CHEST/ABD/PEL W EXAM: CT CHEST/ABD/PEL W CLINICAL HISTORY: RECTAL CA, C20; POST PRIMARY/ADJUVANT TREATMENT TECHNIQUE: Imaging Protocol: Axial computed tomography images with coronal and sagittal reformatted images were created and reviewed CONTRAST MATERIAL: Intravenous: Omnipaque 350 contrast volume:100 mL Oral: Yes COMPARISON: CT CT CHEST/ABD/PEL W from 06/02/2021 FINDINGS: CHEST: Tracheobronchial tree: Patent where visualized. Pulmonary parenchyma: No consolidation or dominant measurable mass. No architectural distortion. Visualized thyroid gland: Unremarkable. Mediastinum and Daniela: No dominant adenopathy or fluid collection. The esophagus is unremarkable. Pleura: No effusion or pneumothorax. Heart: The heart is not dilated. No coronary artery calcifications are seen. No pericardial effusion. Pulmonary arteries: No pulmonary emboli are identified. Aorta: Thoracic aorta non-dilated. No evidence of dissection. Lymph nodes: Within normal limits. Tubes, Catheters, and Lines: There is an [id number] catheter in place. Soft tissues: Unremarkable. Bones:Within normal limits for the patient's age. No aggressive osseous lesions are identified. ABDOMEN: Liver: Normal density. No measurable mass. Portal, Superior Mesenteric, and Splenic Veins: Unremarkable. Gallbladder and Biliary Tract: Cholelithiasis. No biliary ductal dilatation. Pancreas: Normal density, no abnormal calcifications or inflammatory process. Spleen: Normal. Adrenals: No masses seen. Kidneys: Normal size, contour and axis. No radiodense stones or obstructive uropathy. Bilateral renal cysts. No follow-up is recommended. Abdominal Aorta: Abdominal portion non-dilated. Mild atherosclerosis. Bowel: Status post rectosigmoid resection. There is a left-sided colostomy. There is diverticulosis seen in the colon, but no evidence of acute diverticulitis. Appendix is unremarkable. Peritoneal Cavity: No ascites, collection or mesenteric inflammatory response. No free air. Postsur gical changes are seen in the presacral soft tissues. Lymph Nodes: Within normal limits. Bones: Within normal limits for the patient's age. Soft Tissues: Unremarkable. PELVIS: Bladder: Symmetric distention, no gross wall thickening. Reproductive Organs: Unremarkable as visualized. Lymph Nodes: Within normal limits. Bones: Within normal limits. IMPRESSION: 1. Status post rectosigmoid resection with left-sided colostomy. 2. No evidence of abdominal or pelvic metastatic disease. 3. Colonic diverticulosis, but no evidence of acute diverticulitis. 4. No evidence of thoracic metastatic disease. RADIATION DOSE DELIVERED: 2,135.16mGy.cm Total DLP DATA REPOSITORY: All CT scans at this facility are submitted to the National Radiology Data Registry (NRDR) Dose Index Registry (DIR) with the [employer] (ACR). RADIATION OPTIMIZATION: All CT scans at this facility use at least one of these dose optimization te chniques: automated exposure control; mA and/or kV adjustment per patient size (includes targeted exa ms where dose is matched to clinical indication); or iterative reconstruction.
[2022-04-08] MEDS: Omnipaque 350 MG/ML 100 ML BTL IJ (13:32)
[2022-04-08] MEDS: Barium Sulfate 2% W/V-Berry Smoothie 450 ML BTL 900 ML PO (13:34)
== END ==
PROVIDERS: PCP Family Medicine; Visit Provider Nurse Practitioner Family
DX: K57.30 Diverticulosis of large intestine without perforation or abscess without bleeding (principal); Z93.3 Colostomy status
CPT/HCPCS: 36591; 74177; 80048; 80053; 71260; 82378; 85025; J3490

== ENCOUNTER 2022-04-08 01:22 | Outpatient (RCR) | payer MEDICARE, MEDICAID, SELFPAY ==
[2022-03-12 00:06] VITALS: BP 141/86; PULSE 97; RESP 20; TEMP 36.1
[2022-03-18] MEDS: Normal Saline Flush 10 ML SYR IVP (12:52)
[2022-03-18 13:08] LABS: Abs Immature Grans 0.04 10^3/uL (0.0-0.06); Absolute Basophil Count 0.07 10^3/uL (0.0-0.2); Absolute Eosinophil Count 0.24 10^3/uL (0.0-0.7); Absolute Lymphocyte Count 0.91 10^3/uL (1.2-3.4); Absolute Monocyte Count 0.91 10^3/uL (0.1-0.8); Absolute Neutrophil Count 6.42 10^3/uL (1.2-6.7); Basophils % 0.8; Eosinophils % 2.8; HCT 41.4 % (40.0-50.0); HGB 14.7 g/dL (13.5-17.5); Immature Grans % 0.5; Lymphocytes % 10.6; MCH 32.5 pg (27.0-33.0); MCHC 35.5 % (32.0-36.0); MCV 91 fL (80-95); MPV 8.9 fL (8.0-11.0); Monocytes % 10.6; Neutrophils % 74.7; Platelet Count 170 10^3/uL (130-400); RBC 4.53 10^6/uL (4.36-5.78); RDW 15.5 % (11.8-14.1); RDW-SD 50.5 fL; WBC 8.59 10^3/uL (4.4-10.8)
[2022-03-18 13:26] LABS: ALT 15 U/L (16-63); AST 20 U/L (15-37); Albumin 3.6 g/dL (3.4-5.0); Alkaline Phosphatase 97 U/L (46-116); Anion Gap 4.7 mmol/L (3-11); BUN 19 mg/dL (7-18); Bilirubin, Total 0.7 mg/dL (0.2-1.0); CO2 27.3 mmol/L (21.0-32.0); CREATININE 1.2 mg/dL (0.70-1.30); Calcium 9.3 mg/dL (8.5-10.1); Chloride 105 mmol/L (98-107); Estimated GFR 66.28 (mL/min/1.73m2); Glucose 123 mg/dL (74-106); Potassium 3.1 mmol/L (3.5-5.1); Sodium 137 mmol/L (136-145); Total Protein 6.5 g/dL (6.4-8.2)
[2022-03-20 15:07] VITALS: BP 125/90; PULSE 95; RESP 16; TEMP 35.6; O2SAT 95
[2022-03-20] MEDS: Normal Saline Flush 10 ML SYR IVP (15:10)
[2022-03-20] MEDS: Heparin 500 UNITS/5 ML SYRINGE IV (15:10)
[2022-03-21 10:52] LABS: CEA 1.2 ng/mL (See Note)
[2022-04-08] MEDS: Heparin 500 UNITS/5 ML SYRINGE IV (10:48)
[2022-04-08] MEDS: Normal Saline Flush 10 ML SYR IVP (10:48)
[2022-04-08 11:13] LABS: Abs Immature Grans 0.07 10^3/uL (0.0-0.06); Absolute Eosinophil Count 0.38 10^3/uL (0.0-0.7); Absolute Lymphocyte Count 1.01 10^3/uL (1.2-3.4); Absolute Monocyte Count 0.75 10^3/uL (0.1-0.8); Absolute Neutrophil Count 3.43 10^3/uL (1.2-6.7); Basophils % 1.7; Eosinophils % 6.6; HCT 45.5 % (40.0-50.0); HGB 15.6 g/dL (13.5-17.5); Immature Grans % 1.2; Lymphocytes % 17.6; MCHC 34.3 % (32.0-36.0); MCV 93 fL (80-95); MPV 9.4 fL (8.0-11.0); Monocytes % 13.1; Neutrophils % 59.8; Platelet Count 235 10^3/uL (130-400); RBC 4.87 10^6/uL (4.36-5.78); RDW 15.4 % (11.8-14.1); RDW-SD 52.6 fL; WBC 5.74 10^3/uL (4.4-10.8)
[2022-04-08 11:31] LABS: ALT 22 U/L (16-63); AST 19 U/L (15-37); Albumin 3.9 g/dL (3.4-5.0); Alkaline Phosphatase 98 U/L (46-116); Anion Gap 5.6 mmol/L (3-11); BUN 20 mg/dL (7-18); Bilirubin, Total 0.5 mg/dL (0.2-1.0); CO2 30.4 mmol/L (21.0-32.0); CREATININE 1.2 mg/dL (0.70-1.30); Calcium 9.3 mg/dL (8.5-10.1); Chloride 104 mmol/L (98-107); Estimated GFR 65.87 (mL/min/1.73m2); Glucose 98 mg/dL (74-106); Potassium 3.9 mmol/L (3.5-5.1); Sodium 140 mmol/L (136-145)
[2022-04-08 19:54] LABS: CEA 1.4 ng/mL (See Note)
== END 2022-04-11 23:59 | disposition home or self-care (01) ==
LOC: INF 01:22
PROVIDERS: PCP Family Medicine; Visit Provider Internal Medicine Hematology & Oncology
DX: C20 Malignant neoplasm of rectum (principal); Z45.2 Encounter for adjustment and management of vascular access device
CPT/HCPCS: 36591; 80053; 96523; 82378; 85025

== ENCOUNTER 2022-05-27 09:30 | Outpatient (RCR) | payer MEDICARE, MEDICAID, SELFPAY ==
[2022-05-27] MEDS: Heparin 500 UNITS/5 ML SYRINGE (13:00)
[2022-05-27] MEDS: Normal Saline Flush 10 ML SYR IVP (13:00)
[2022-05-27 21:42] LABS: CEA 1.2 ng/mL (See Note)
== END 2022-06-11 23:59 | disposition home or self-care (01) ==
LOC: INF 09:30
PROVIDERS: PCP Family Medicine; Visit Provider Internal Medicine Hematology & Oncology
DX: C20 Malignant neoplasm of rectum (principal); Z45.2 Encounter for adjustment and management of vascular access device
CPT/HCPCS: 36415; 36591; 96523; 82378

== ENCOUNTER 2022-07-20 03:40 | Outpatient (RCR) | payer MEDICARE, MEDICAID, SELFPAY ==
[2022-07-20] MEDS: Heparin 500 UNITS/5 ML SYRINGE IV (10:50)
[2022-07-20] MEDS: Normal Saline Flush 10 ML SYR IVP (10:50)
[2022-07-20 11:22] LABS: Abs Immature Grans 0.02 10^3/uL (0.0-0.06); Absolute Basophil Count 0.09 10^3/uL (0.0-0.2); Absolute Eosinophil Count 0.25 10^3/uL (0.0-0.7); Absolute Lymphocyte Count 1.17 10^3/uL (1.2-3.4); Absolute Monocyte Count 0.49 10^3/uL (0.1-0.8); Absolute Neutrophil Count 4.15 10^3/uL (1.2-6.7); Basophils % 1.5; Eosinophils % 4.1; HCT 51.4 % (40.0-50.0); HGB 17.6 g/dL (13.5-17.5); Immature Grans % 0.3; MCH 30.9 pg (27.0-33.0); MCHC 34.2 % (32.0-36.0); MCV 90 fL (80-95); MPV 9.2 fL (8.0-11.0); Monocytes % 7.9; Neutrophils % 67.2; Platelet Count 211 10^3/uL (130-400); RBC 5.69 10^6/uL (4.36-5.78); RDW 12.9 % (11.8-14.1); WBC 6.17 10^3/uL (4.4-10.8)
[2022-07-20 11:37] LABS: ALT 26 U/L (16-63); AST 20 U/L (15-37); Alkaline Phosphatase 109 U/L (46-116); Anion Gap 7.1 mmol/L (3-11); BUN 16 mg/dL (7-18); Bilirubin, Total 0.6 mg/dL (0.2-1.0); CO2 28.9 mmol/L (21.0-32.0); CREATININE 1.3 mg/dL (0.70-1.30); Chloride 107 mmol/L (98-107); Estimated GFR 59.84 (mL/min/1.73m2); Glucose 136 mg/dL (74-106); Sodium 143 mmol/L (136-145)
[2022-07-20 23:00] LABS: CEA 1.2 ng/mL (See Note)
== END 2022-08-09 23:59 | disposition home or self-care (01) ==
LOC: INF 03:40
PROVIDERS: PCP Family Medicine; Visit Provider Nurse Practitioner Family
DX: C20 Malignant neoplasm of rectum (principal); Z45.1 Encounter for adjustment and management of infusion pump
CPT/HCPCS: 36591; 80053; 82378; 85025

== ENCOUNTER 2022-08-24 01:30 | Outpatient (CLI) | payer MEDICARE, MEDICAID, SELFPAY ==
--- NOTE | 2022-08-24 | DI.CT_ITS ---
Exam(s) CT CHEST/ABD/PEL W EXAM: CT CHEST/ABD/PEL W CLINICAL HISTORY: RECTAL CANCER C20, MONITOR TECHNIQUE: Imaging Protocol: Axial computed tomography images with coronal and sagittal reformatted images were created and reviewed CONTRAST MATERIAL: Intravenous: Omnipaque 350 contrast volume:100 mL Oral: Yes COMPARISON: CT CT CHEST/ABD/PEL W from 04/08/2022 FINDINGS: CHEST: Tracheobronchial tree: Patent where visualized. Pulmonary parenchyma: No consolidation or dominant measurable mass. No architectural distortion. Visualized thyroid gland: Unremarkable. Mediastinum and Daniela: No dominant adenopathy or fluid collection. The esophagus is unremarkable. Pleura: No effusion or pneumothorax. Heart: The heart is not dilated. No coronary artery calcifications are seen. No pericardial effusion. Pulmonary arteries: No pulmonary emboli are identified. Aorta: Thoracic aorta non-dilated. Lymph nodes: Within normal limits. Tubes, Catheters, and Lines: There is a Port-A-Cath in place. Soft tissues: Unremarkable. Bones:Within normal limits for the patient's age. ABDOMEN: Liver: Normal density. No measurable mass. Portal, Superior Mesenteric, and Splenic Veins: Unremarkable. Gallbladder and Biliary Tract: There is a gallstone present. No biliary ductal dilatation. Pancreas: Normal density, no abnormal calcifications or inflammatory process. Spleen: Normal. Adrenals: No masses seen. Kidneys: Normal size, contour and axis. No radiodense stones or obstructive uropathy. There are bilat eral simple renal cysts. No follow-up is recommended. Abdominal Aorta: Abdominal portion non-dilated. Mild atherosclerosis is present. Bowel: There is again seen a resection of the distal colon and rectum with a left lower quadrant colo stomy. There is diverticulosis seen in the colon, but no evidence of acute diverticulitis. There is no evidence of bowel wall thickening or obstruction. No evidence of appendicitis. There is a moder ate amount of stool in the colon. There are surgical clips seen at the gastroesophageal junction. N ote is made of a small duodenal diverticulum adjacent to the head of the pancreas. Peritoneal Cavity: No ascites, collection or mesenteric inflammatory response. No free air. Lymph Nodes: Within normal limits. Bones: Within normal limits for the patient's age. Soft Tissues: There is a small fat containing umbilical hernia. PELVIS: Bladder: Symmetric distention, no gross wall thickening. Reproductive Organs: Unremarkable as visualized. Lymph Nodes: Within normal limits. Bones: Within normal limits. IMPRESSION: 1. No evidence of thoracic, abdominal or pelvic metastatic disease. 2. Status post rectosigmoid resection with a left-sided colostomy. 3. No acute chest, abdominal or pelvic process. RADIATION DOSE DELIVERED: 2,293.98mGy.cm Total DLP DATA REPOSITORY: All CT scans at this facility are submitted to the National Radiology Data Registry (NRDR) Dose Index Registry (DIR) with the [employer] (ACR). RADIATION OPTIMIZATION: All CT scans at this facility use at least one of these dose optimization te chniques: automated exposure control; mA and/or kV adjustment per patient size (includes targeted exa ms where dose is matched to clinical indication); or iterative reconstruction.
[2022-08-24] MEDS: Barium Sulfate 2% W/V-Berry Smoothie 450 ML BTL PO (08:08)
[2022-08-24] MEDS: Omnipaque 350 MG/ML 100 ML BTL IJ (09:58)
[2022-08-24] MEDS: Normal Saline Flush 10 ML SYR IVP (10:00)
== END 2022-08-24 01:50 ==
LOC: DI 01:31
PROVIDERS: PCP Family Medicine; Visit Provider Nurse Practitioner Family
DX: C20 Malignant neoplasm of rectum (principal); K80.20 Calculus of gallbladder without cholecystitis without obstruction; K57.10 Diverticulosis of small intestine without perforation or abscess without bleeding; Z93.3 Colostomy status; Z12.89 Encounter for screening for malignant neoplasm of other sites
CPT/HCPCS: 36591; 74177; 80053; 71260; 82378; 85025; J3490

== ENCOUNTER 2022-08-24 02:02 | Outpatient (RCR) | payer MEDICARE, MEDICAID, SELFPAY ==
[2022-08-24] MEDS: Normal Saline Flush 10 ML SYR IVP (07:56)
[2022-08-24] MEDS: Heparin 500 UNITS/5 ML SYRINGE IV (07:57)
[2022-08-24 08:06] LABS: Abs Immature Grans 0.02 10^3/uL (0.0-0.06); Absolute Basophil Count 0.08 10^3/uL (0.0-0.2); Absolute Eosinophil Count 0.38 10^3/uL (0.0-0.7); Absolute Lymphocyte Count 1.53 10^3/uL (1.2-3.4); Absolute Monocyte Count 0.71 10^3/uL (0.1-0.8); Basophils % 1.2; Eosinophils % 5.6; HCT 46.8 % (40.0-50.0); Immature Grans % 0.3; Lymphocytes % 22.4; MCH 30.6 pg (27.0-33.0); MCHC 34.2 % (32.0-36.0); MCV 90 fL (80-95); MPV 9.1 fL (8.0-11.0); Monocytes % 10.4; Neutrophils % 60.1; Platelet Count 185 10^3/uL (130-400); RBC 5.23 10^6/uL (4.36-5.78); RDW 12.6 % (11.8-14.1); RDW-SD 41.2 fL; WBC 6.82 10^3/uL (4.4-10.8)
[2022-08-24 08:30] LABS: ALT 26 U/L (16-63); AST 13 U/L (15-37); Albumin 3.7 g/dL (3.4-5.0); Alkaline Phosphatase 109 U/L (46-116); Anion Gap 6.8 mmol/L (3-11); BUN 23 mg/dL (7-18); Bilirubin, Total 0.4 mg/dL (0.2-1.0); CO2 30.2 mmol/L (21.0-32.0); CREATININE 1.2 mg/dL (0.70-1.30); Chloride 105 mmol/L (98-107); Estimated GFR 65.87 (mL/min/1.73m2); Glucose 92 mg/dL (74-106); Potassium 3.7 mmol/L (3.5-5.1); Sodium 142 mmol/L (136-145); Total Protein 6.7 g/dL (6.4-8.2)
[2022-08-24 18:01] LABS: CEA 1.2 ng/mL (See Note)
== END 2022-09-09 23:59 | disposition home or self-care (01) ==
LOC: INF 02:02
PROVIDERS: PCP Family Medicine; Visit Provider Internal Medicine Hematology & Oncology
DX: C20 Malignant neoplasm of rectum (principal); Z45.2 Encounter for adjustment and management of vascular access device
CPT/HCPCS: 36591; 80053; 82378; 85025

== ENCOUNTER 2022-10-14 08:03 | Outpatient (RCR) | payer MEDICARE, MEDICAID, SELFPAY ==
[2022-10-14 08:51] LABS: Abs Immature Grans 0.04 10^3/uL (0.0-0.06); Absolute Basophil Count 0.09 10^3/uL (0.0-0.2); Absolute Eosinophil Count 0.32 10^3/uL (0.0-0.7); Absolute Lymphocyte Count 1.25 10^3/uL (1.2-3.4); Absolute Monocyte Count 0.56 10^3/uL (0.1-0.8); Absolute Neutrophil Count 4.52 10^3/uL (1.2-6.7); Basophils % 1.3; Eosinophils % 4.7; HCT 46.8 % (40.0-50.0); HGB 16.1 g/dL (13.5-17.5); Immature Grans % 0.6; Lymphocytes % 18.4; MCHC 34.4 % (32.0-36.0); MCV 93 fL (80-95); MPV 9.1 fL (8.0-11.0); Monocytes % 8.3; Neutrophils % 66.7; Platelet Count 242 10^3/uL (130-400); RBC 5.03 10^6/uL (4.36-5.78); RDW 13.1 % (11.8-14.1); RDW-SD 44.8 fL; WBC 6.78 10^3/uL (4.4-10.8)
[2022-10-14 09:04] LABS: ALT 29 U/L (16-63); AST 19 U/L (15-37); Albumin 3.9 g/dL (3.4-5.0); Alkaline Phosphatase 106 U/L (46-116); Anion Gap 7.5 mmol/L (3-11); BUN 23 mg/dL (7-18); Bilirubin, Total 0.8 mg/dL (0.2-1.0); CO2 28.5 mmol/L (21.0-32.0); CREATININE 1.2 mg/dL (0.70-1.30); Calcium 9.4 mg/dL (8.5-10.1); Chloride 105 mmol/L (98-107); Estimated GFR 65.87 (mL/min/1.73m2); Glucose 154 mg/dL (74-106); Sodium 141 mmol/L (136-145); Total Protein 7.1 g/dL (6.4-8.2)
[2022-10-14 21:09] LABS: CEA 1.2 ng/mL (See Note)
== END 2022-11-09 23:59 | disposition home or self-care (01) ==
LOC: INF 08:03
PROVIDERS: PCP Family Medicine; Visit Provider Nurse Practitioner Family
DX: C20 Malignant neoplasm of rectum (principal)
CPT/HCPCS: 36415; 80053; 82378; 85025

== ENCOUNTER 2022-11-17 01:59 | Outpatient (CLI) | payer MEDICARE, MEDICAID, SELFPAY ==
--- NOTE | 2022-11-17 15:20 | DI.MRI_ITS ---
Exam(s) MR BRAIN WO EXAM: MR BRAIN WO CLINICAL HISTORY: DIZZINESS R42 TECHNIQUE: Multiplanar multisequence MRI of the brain was performed. COMPARISON: No exams were available for comparison FINDINGS: The examination is limited due to patient motion artifact. VENTRICLES AND EXTRA AXIAL SPACES: Normal in size and morphology for the patient's age. MIDLINE SHIFT: None. CEREBRAL PARENCHYMA: No focus of restricted diffusion to suggest acute infarct. No space-occupying le derek identified. HEMORRHAGE: None. BRAINSTEM/CEREBELLUM: Normal. CALVARIUM: Normal. VISUALIZED PARANASAL SINUSES/MASTOIDS:Clear. IR[place]OIS OF [place]: Normal flow void. PITUITARY GLAND: Unremarkable. OTHER FINDINGS: None. IMPRESSION: 1. There is age-appropriate cerebral atrophy. 2. No acute intracranial process. No evidence of an acute infarct. DATA REPOSITORY:
== END 2022-11-17 02:19 ==
LOC: DI 01:59
PROVIDERS: PCP Family Medicine; Visit Provider Internal Medicine
DX: R42 Dizziness and giddiness (principal); H31 Other disorders of choroid
CPT/HCPCS: 70551

== ENCOUNTER 2022-11-28 04:21 | Outpatient (CLI) | payer MEDICARE, MEDICAID, SELFPAY ==
[2022-12-04 12:10] LABS: Testosterone, Free 2.89 ng/dL (3.47-13.0); Testosterone, Total 161 ng/dL (240-950)
== END 2022-11-28 04:22 | disposition home or self-care (01) ==
LOC: LOS 04:21
PROVIDERS: PCP Family Medicine; Visit Provider Orthopaedic Surgery Foot and Ankle Surgery
DX: E29.1 Testicular hypofunction (principal)
CPT/HCPCS: 36415; 84402; 84403; 82378

== ENCOUNTER 2022-12-12 03:02 | Outpatient (CLI) | payer MEDICARE, MEDICAID, SELFPAY ==
[2022-12-15 11:53] LABS: CEA 1.5 ng/mL (See Note)
== END 2022-12-12 03:03 | disposition home or self-care (01) ==
PROVIDERS: PCP Family Medicine; Visit Provider Nurse Practitioner Family
DX: C20 Malignant neoplasm of rectum (principal)
CPT/HCPCS: 36415; 82378

== ENCOUNTER → 2023-01-24 01:25 | Outpatient (CLI) | payer MEDICARE, MEDICAID, SELFPAY ==
[2023-01-24 08:52] LABS: Abs Immature Grans 0.04 10^3/uL (0.0-0.06); Absolute Basophil Count 0.08 10^3/uL (0.0-0.2); Absolute Eosinophil Count 0.25 10^3/uL (0.0-0.7); Absolute Lymphocyte Count 1.15 10^3/uL (1.2-3.4); Absolute Monocyte Count 0.54 10^3/uL (0.1-0.8); Absolute Neutrophil Count 3.98 10^3/uL (1.2-6.7); Basophils % 1.3; Eosinophils % 4.1; HCT 44.1 % (40.0-50.0); HGB 15.4 g/dL (13.5-17.5); Immature Grans % 0.7; MCH 31.8 pg (27.0-33.0); MCHC 34.9 % (32.0-36.0); MCV 91 fL (80-95); MPV 9.1 fL (8.0-11.0); Monocytes % 8.9; Platelet Count 218 10^3/uL (130-400); RBC 4.84 10^6/uL (4.36-5.78); RDW 12.6 % (11.8-14.1); RDW-SD 41.5 fL; WBC 6.04 10^3/uL (4.4-10.8)
[2023-01-24 09:05] LABS: ALT 33 U/L (16-63); AST 19 U/L (15-37); Albumin 3.8 g/dL (3.4-5.0); Alkaline Phosphatase 99 U/L (46-116); Anion Gap 8.3 mmol/L (3-11); BUN 25 mg/dL (7-18); Bilirubin, Total 0.8 mg/dL (0.2-1.0); CO2 29.7 mmol/L (21.0-32.0); CREATININE 1.2 mg/dL (0.70-1.30); Chloride 107 mmol/L (98-107); Estimated GFR 65.87 (mL/min/1.73m2); Glucose 109 mg/dL (74-106); Potassium 3.9 mmol/L (3.5-5.1); Sodium 145 mmol/L (136-145); Total Protein 6.9 g/dL (6.4-8.2)
[2023-01-24] MEDS: Normal Saline - Diluent 50 ML VIAL IJ (10:38)
[2023-01-24] MEDS: Normal Saline Flush 10 ML SYR IJ (10:39)
[2023-01-24] MEDS: Omnipaque 350 MG/ML 500 ML BTL-Imaging package 100 ML IJ (10:40)
--- NOTE | 2023-01-24 10:43 | DI.CT_ITS ---
Exam(s) CT CHEST/ABD/PEL W EXAM: CT CHEST/ABD/PEL W CLINICAL HISTORY: RECTAL CA, C20. TECHNIQUE: Imaging Protocol: Axial computed tomography images with coronal and sagittal reformatted images were created and reviewed CONTRAST MATERIAL: Intravenous: Omnipaque 350 Contrast volume:100 ml Oral: yes / COMPARISON: CT CT CHEST/ABD/PEL W from 08/24/2022 FINDINGS: CHEST: Tracheobronchial tree: Patent where visualized. Pulmonary parenchyma: No consolidation or dominant measurable mass. Pleura: No effusion or pneumothorax. Lymph nodes: Within normal limits. Aorta: Thoracic portion non-dilated. Pulmonary arteries: Heart: Small size. No pericardial effusion. Bones: Unremarkable for age. No lytic or blastic lesions.No compression fractures. Soft tissues: Port no longer present. ABDOMEN: Liver: Mild fat exceed a ptosis.. No measurable mass. Gallbladder and biliary tract: Single small gallstone. No biliary dilation. Pancreas: Normal density, no abnormal calcifications or inflammatory process. Spleen: Normal. Kidneys: Normal size, contour and axis. No radiodense stones or obstructive uropathy. No suspicious m asses seen. Adrenal glands: No masses seen. Aorta: Abdominal portion non-dilated. Lymph nodes: Within normal limits. Soft tissues: Small fatty containing umbilical hernia. Surgical clips again noted at the GE junction. Duodenal diverticulum. No small bowel dilatation. PELVIS: Bladder: Symmetric distention, no gross wall thickening. Bowel: Resection the distal descending colon and rectum. Left lower quadrant ostomy. Ostomy unremar kable. No obstruction or bowel wall thickening. Appendix normal. Moderate quantity of stool. Diver ticulosis. No evidence of diverticulitis. Peritoneal cavity: No ascites, collection or mesenteric inflammatory response. Bones: Unremarkable for age.. Reproductive organs: Within normal limits. IMPRESSION: Stable appearance of resection of the distal colon and rectum. Stable appearance of ostomy. No evidence of metastatic disease or other acute abnormality in the chest, abdomen or pelvis.. RADIATION DOSE DELIVERED: 2,071.6mGy.cm Total DLP DATA REPOSITORY: All CT scans at this facility are submitted to the National Radiology Data Registry (NRDR) Dose Index Registry (DIR) with the [employer] (ACR). RADIATION OPTIMIZATION: All CT scans at this facility use at least one of these dose optimization te chniques: automated exposure control; mA and/or kV adjustment per patient size (includes targeted exa ms where dose is matched to clinical indication); or iterative reconstruction.
[2023-01-24] MEDS: Barium Sulfate 2% W/V-Berry Smoothie 450 ML BTL 900 ML PO (10:44)
[2023-01-24 18:02] LABS: CEA 1.2 ng/mL (See Note)
== END ==
PROVIDERS: PCP Family Medicine; Visit Provider Nurse Practitioner Family
DX: C20 Malignant neoplasm of rectum (principal)
CPT/HCPCS: 74177; 80053; 71260; 82378; 85025

== ENCOUNTER 2023-04-06 04:12 | Outpatient (CLI) | payer MEDICARE, MEDICAID, SELFPAY ==
[2023-04-18 08:44] LABS: Testosterone, Free 22.8 ng/dL (3.47-13.0); Testosterone, Total 879 ng/dL (240-950)
== END 2023-04-06 04:13 | disposition home or self-care (01) ==
PROVIDERS: PCP Family Medicine; Visit Provider Internal Medicine
DX: E29.1 Testicular hypofunction (principal)
CPT/HCPCS: 36415; 84402; 84403

== ENCOUNTER 2023-04-28 02:41 | Outpatient (CLI) | payer MEDICARE, MEDICAID, SELFPAY ==
[2023-04-28 13:55] LABS: Abs Immature Grans 0.03 10^3/uL (0.0-0.06); Absolute Eosinophil Count 0.64 10^3/uL (0.0-0.7); Absolute Lymphocyte Count 1.49 10^3/uL (1.2-3.4); Absolute Monocyte Count 0.55 10^3/uL (0.1-0.8); Absolute Neutrophil Count 4.88 10^3/uL (1.2-6.7); Basophils % 1.3; Eosinophils % 8.3; HCT 51.6 % (40.0-50.0); HGB 17.6 g/dL (13.5-17.5); Immature Grans % 0.4; Lymphocytes % 19.4; MCH 31.5 pg (27.0-33.0); MCHC 34.1 % (32.0-36.0); MCV 92 fL (80-95); Monocytes % 7.2; Neutrophils % 63.4; Platelet Count 234 10^3/uL (130-400); RBC 5.59 10^6/uL (4.36-5.78); RDW 12.3 % (11.8-14.1); RDW-SD 42.1 fL; WBC 7.69 10^3/uL (4.4-10.8)
[2023-04-28 14:09] LABS: Albumin 3.7 g/dL (3.4-5.0); Alkaline Phosphatase 104 U/L (46-116); Anion Gap 9.1 mmol/L (3-11); BUN 18 mg/dL (7-18); Bilirubin, Total 0.6 mg/dL (0.2-1.0); CO2 29.9 mmol/L (21.0-32.0); CREATININE 1.2 mg/dL (0.70-1.30); Calcium 9.2 mg/dL (8.5-10.1); Chloride 103 mmol/L (98-107); Estimated GFR 65.46 (mL/min/1.73m2); Glucose 125 mg/dL (74-106); Sodium 142 mmol/L (136-145); Total Protein 7.1 g/dL (6.4-8.2)
[2023-04-28 14:53] LABS: ALT 26 U/L (16-63)
[2023-04-28 15:09] LABS: AST 13 U/L (15-37)
[2023-05-01 09:43] LABS: CEA 1.5 ng/mL (See Note)
[2023-05-03 16:10] LABS: Testosterone, Total 2000 ng/dL (240-950)
== END 2023-04-28 02:42 | disposition home or self-care (01) ==
PROVIDERS: PCP Family Medicine; Visit Provider Orthopaedic Surgery Foot and Ankle Surgery
DX: E29.1 Testicular hypofunction (principal); R97.20 Elevated prostate specific antigen [PSA]; C20 Malignant neoplasm of rectum
CPT/HCPCS: 84153; 36415; 80053; 84403; 82378; 85025

== ENCOUNTER → 2023-07-21 01:42 | Outpatient (CLI) | payer MEDICARE, MEDICAID, SELFPAY ==
--- NOTE | 2023-07-21 | DI.CT_ITS ---
Exam(s) CT CHEST/ABD/PEL W EXAM: CT CHEST/ABD/PEL W CLINICAL HISTORY: RECTAL CANCER C20 POST TREATMENT. TECHNIQUE: Imaging Protocol: Axial computed tomography images with coronal and sagittal reformatted images were created and reviewed CONTRAST MATERIAL: Intravenous: Omnipaque 350 Contrast volume:100 ml Oral: Yes. Oral contrast was also administered for bowel opacification. COMPARISON: CT CT CHEST/ABD/PEL W from 01/24/2023 FINDINGS: CHEST: LUNGS: There are no metastatic lung nodules, infiltrates, nor pleural effusions.. MEDIASTINUM: There is no hilar nor mediastinal adenopathy. Visualized thyroid unremarkable. CARDIAC: Heart size is normal. There is no pericardial effusion.Caliber of the thoracic aorta is wit hin normal limits. OSSEOUS: No significant osseous lesions. No fractures.. ABDOMEN: There is no ascites. Numerous surgical clips are again noted in the GE junction region. LIVER: Hepatic steatosis again noted. There are no metastatic lesions in the liver. No dilated intr ahepatic ducts. GALLBLADDER/BILIARY: A single small gallstone is again noted on the dependent wall of the gallbladder . No gallbladder wall edema. CBD is not dilated. PANCREAS: No evidence of pancreatic mass nor dilatation of the pancreatic duct. SPLEEN: Spleen is not enlarged. There are no intrasplenic lesions. Splenic and portal veins are duke nt. ADRENALS: There are no significant adrenal masses. KIDNEYS: No calculi nor hydronephrosis. No solid renal masses. There is small sub cm cortical cysts n oted in both kidneys. In the upper pole the left kidney there is a benign cyst measuring 3 by 2.5 cm unchanged and not requiring further workup. ABDOMINAL AORTA: Abdominal aorta is not enlarged. LYMPH NODES: There is no retroperitoneal nor paraaortic adenopathy. ABDOMINAL WALL: Left anterior abdominal wall colostomy again noted. There are diverticuli evident at the colostomy level, largest being off the superior wall of the colon at this level and measuring 1.4 by 1.1 cm. There is no streaking to suggest acute diverticulitis. There is no evidence of small-dominick l obstruction. GI: There is no evidence of small bowel obstruction.The barium has reached the colon at the time of i mage acquisition. There is a moderate amount of fecal material in the colon. No new mesenteric masses evident. PELVIS: LYMPH NODES: There is no intrapelvic nor inguinal adenopathy. GI: No evidence of appendicitis.No evidence of sigmoid diverticulitis.Colostomy. URINARY BLADDER: No calculi nor masses evident REPRODUCTIVE: Mild uniform thickening of the urinary bladder noted. This may be related to under dist ension here. No radiopaque calculi nor gas evident in the bladder lumen. OSSEOUS: No significant osseous lesions. No fractures. IMPRESSION: 1. No evidence of metastatic disease in the chest, abdomen, and pelvis. 2. Left-sided colostomy with no evidence of bowel obstruction. However, there are diverticuli in the distal colon including at the colostomy level. There is presently no evidence of acute diverticulitis . RADIATION DOSE DELIVERED: 3,068.52mGy.cm Total DLP DATA REPOSITORY: All CT scans at this facility are submitted to the National Radiology Data Registry (NRDR) Dose Index Registry (DIR) with the [employer] (ACR). RADIATION OPTIMIZATION: All CT scans at this facility use at least one of these dose optimization te chniques: automated exposure control; mA and/or kV adjustment per patient size (includes targeted exa ms where dose is matched to clinical indication); or iterative reconstruction.
[2023-07-21 09:03] LABS: Abs Immature Grans 0.02 10^3/uL (0.0-0.06); Absolute Eosinophil Count 0.19 10^3/uL (0.0-0.7); Absolute Lymphocyte Count 1.03 10^3/uL (1.2-3.4); Absolute Monocyte Count 0.53 10^3/uL (0.1-0.8); Absolute Neutrophil Count 4.63 10^3/uL (1.2-6.7); Basophils % 1.5; Eosinophils % 2.9; HCT 53.9 % (40.0-50.0); Immature Grans % 0.3; Lymphocytes % 15.8; MCH 29.5 pg (27.0-33.0); MCHC 33.4 % (32.0-36.0); MCV 88 fL (80-95); MPV 9.4 fL (8.0-11.0); Monocytes % 8.2; Neutrophils % 71.3; Platelet Count 236 10^3/uL (130-400); RDW-SD 44.6 fL
[2023-07-21 09:19] LABS: ALT 32 U/L (16-63); AST 20 U/L (15-37); Albumin 3.8 g/dL (3.4-5.0); Alkaline Phosphatase 97 U/L (46-116); Anion Gap 9.1 mmol/L (3-11); BUN 24 mg/dL (7-18); Bilirubin, Total 0.9 mg/dL (0.2-1.0); CO2 29.9 mmol/L (21.0-32.0); CREATININE 1.4 mg/dL (0.70-1.30); Calcium 9.1 mg/dL (8.5-10.1); Chloride 104 mmol/L (98-107); Estimated GFR 54.41 (mL/min/1.73m2); Glucose 118 mg/dL (74-106); Potassium 4.1 mmol/L (3.5-5.1); Sodium 143 mmol/L (136-145); Total Protein 7.2 g/dL (6.4-8.2)
[2023-07-21 09:48] LABS: Diff Comment Diff Reviewed; RBC Morphology Normal
[2023-07-21] MEDS: Barium Sulfate 2% W/V-Creamy Vanilla Smoothie 450 ML BTL PO (11:00)
[2023-07-21] MEDS: Barium Sulfate 2% W/V-Berry Smoothie 450 ML BTL PO (11:01)
[2023-07-21] MEDS: Normal Saline - Diluent 50 ML VIAL IJ (11:04)
[2023-07-21] MEDS: Omnipaque 350 MG/ML 500 ML BTL-Imaging package 100 ML IJ (11:05)
[2023-07-21 18:23] LABS: CEA 1.1 ng/mL (See Note)
== END ==
PROVIDERS: PCP Family Medicine; Visit Provider Nurse Practitioner Family
DX: C20 Malignant neoplasm of rectum (principal)
CPT/HCPCS: 74177; 80053; 71260; 82378; 85025

== ENCOUNTER 2023-11-01 05:01 | Outpatient (CLI) | payer MEDICARE, MEDICAID, SELFPAY ==
[2023-11-01 13:50] LABS: Abs Immature Grans 0.04 10^3/uL (0.0-0.06); Absolute Basophil Count 0.09 10^3/uL (0.0-0.2); Absolute Eosinophil Count 0.13 10^3/uL (0.0-0.7); Absolute Lymphocyte Count 1.23 10^3/uL (1.2-3.4); Absolute Neutrophil Count 4.57 10^3/uL (1.2-6.7); Basophils % 1.4 %; HGB 17.2 g/dL (13.5-17.5); Immature Grans % 0.6 %; Lymphocytes % 18.8 %; MCH 30.6 pg (27.0-33.0); MCHC 33.7 % (32.0-36.0); MCV 91 fL (80-95); MPV 9.2 fL (8.0-11.0); Monocytes % 7.6 %; Neutrophils % 69.6 %; Platelet Count 237 10^3/uL (130-400); RBC 5.62 10^6/uL (4.36-5.78); RDW 13.8 % (11.8-14.1); RDW-SD 46.5 fL; WBC 6.56 10^3/uL (4.4-10.8)
[2023-11-01 14:03] LABS: ALT 36 U/L (16-63); AST 23 U/L (15-37); Albumin 3.8 g/dL (3.4-5.0); Alkaline Phosphatase 96 U/L (46-116); BUN 16 mg/dL (7-18); Bilirubin, Total 0.6 mg/dL (0.2-1.0); CREATININE 1.4 mg/dL (0.70-1.30); Calcium 8.9 mg/dL (8.5-10.1); Chloride 106 mmol/L (98-107); Estimated GFR 54.41 (mL/min/1.73m2); Glucose 140 mg/dL (74-106); Potassium 3.9 mmol/L (3.5-5.1); Sodium 142 mmol/L (136-145); Total Protein 6.8 g/dL (6.4-8.2)
[2023-11-02 08:24] LABS: CEA 1.4 ng/mL (See Note)
== END 2023-11-01 05:02 | disposition home or self-care (01) ==
PROVIDERS: PCP Family Medicine; Visit Provider Nurse Practitioner Family
DX: C20 Malignant neoplasm of rectum (principal)
CPT/HCPCS: 36415; 80053; 82378; 85025

== ENCOUNTER 2024-01-26 00:34 | Outpatient (CLI) | payer MEDICARE, SELFPAY ==
--- NOTE | 2024-01-26 | DI.CT_ITS ---
Exam(s) CT CHEST/ABD/PEL W EXAM: CT CHEST/ABD/PEL W CLINICAL HISTORY: Local recurrence of rectal CA, C20 TECHNIQUE: Imaging Protocol: Axial computed tomography images with coronal and sagittal reformatted images were created and reviewed CONTRAST MATERIAL: Intravenous: Omnipaque 350 contrast volume:100 mL Oral: Yes COMPARISON: CT CT CHEST/ABD/PEL W from 01/24/[address] CHEST/ABD/PEL W from 07/21/2023 FINDINGS: CHEST: Tracheobronchial tree: Patent where visualized. Pulmonary parenchyma: No consolidation or dominant measurable mass. No architectural distortion. Visualized thyroid gland: Unremarkable. Mediastinum and Daniela: No dominant adenopathy or fluid collection. The esophagus is unremarkable. Pleura: No effusion or pneumothorax. Heart: The heart is not dilated. No coronary artery calcifications are seen. No pericardial effusion. Pulmonary arteries: No pulmonary emboli are identified. Aorta: Thoracic aorta non-dilated. There is no evidence of dissection. Lymph nodes: Within normal limits. Soft tissues: Unremarkable. Bones:Within normal limits for the patient's age. ABDOMEN: Liver: Decreased attenuation of the liver suggesting fatty infiltration. No measurable mass. Portal, Superior Mesenteric, and Splenic Veins: Unremarkable. Gallbladder and Biliary Tract: Cholelithiasis. No biliary ductal dilatation. Pancreas: Normal density, no abnormal calcifications or inflammatory process. Spleen: Normal. Adrenals: No masses seen. Kidneys: Normal size, contour and axis. No radiodense stones or obstructive uropathy. Bilateral simpl e renal cysts. No follow-up is recommended. Abdominal Aorta: Abdominal portion non-dilated. Atherosclerotic calcification is present. Bowel: Status post rectosigmoid resection with a left lower quadrant colostomy. There is diverticulo sis seen in the colon without evidence of acute diverticulitis. No evidence of bowel obstruction or bowel wall thickening. No evidence of appendicitis. There is a duodenal diverticulum adjacent to th e pancreatic head. There is a stable appearance of the surgical bed. Peritoneal Cavity: No ascites, collection or mesenteric inflammatory response. No free air. Lymph Nodes: Within normal limits. Bones: Within normal limits for the patient's age. Soft Tissues: Unremarkable. PELVIS: Bladder: Symmetric distention, no gross wall thickening. Reproductive Organs: Unremarkable as visualized. Lymph Nodes: Within normal limits. Bones: Within normal limits. IMPRESSION: 1. No evidence of thoracic, abdominal or pelvic metastatic disease. 2. Stable postsurgical changes seen in the pelvis. RADIATION DOSE DELIVERED: Total DLP DATA REPOSITORY: All CT scans at this facility are submitted to the National Radiology Data Registry (NRDR) Dose Index Registry (DIR) with the [employer] (ACR). RADIATION OPTIMIZATION: All CT scans at this facility use at least one of these dose optimization te chniques: automated exposure control; mA and/or kV adjustment per patient size (includes targeted exa ms where dose is matched to clinical indication); or iterative reconstruction.
[2024-01-26] MEDS: Barium Sulfate 2% W/V-Berry Smoothie 450 ML BTL PO ×2 (08:24→08:25)
[2024-01-26 08:45] LABS: Abs Immature Grans 0.03 10^3/uL (0.0-0.06); Absolute Basophil Count 0.08 10^3/uL (0.0-0.2); Absolute Eosinophil Count 0.16 10^3/uL (0.0-0.7); Absolute Lymphocyte Count 1.16 10^3/uL (1.2-3.4); Absolute Monocyte Count 0.58 10^3/uL (0.1-0.8); HCT 53.7 % (40.0-50.0); Immature Grans % 0.4 %; Lymphocytes % 14.5 %; MCH 31.1 pg (27.0-33.0); MCHC 33.5 % (32.0-36.0); MCV 93 fL (80-95); MPV 9.2 fL (8.0-11.0); Monocytes % 7.2 %; Neutrophils % 74.9 %; Platelet Count 203 10^3/uL (130-400); RBC 5.79 10^6/uL (4.36-5.78); RDW 13.4 % (11.8-14.1); RDW-SD 45.8 fL; WBC 8.01 10^3/uL (4.4-10.8)
[2024-01-26 09:12] LABS: ALT 37 U/L (16-63); AST 25 U/L (15-37); Albumin 3.9 g/dL (3.4-5.0); Alkaline Phosphatase 95 U/L (46-116); Anion Gap 6.7 mmol/L (3-11); BUN 21 mg/dL (7-18); Bilirubin, Total 0.62 mg/dL (0.2-1.0); CO2 30.3 mmol/L (21.0-32.0); CREATININE 1.4 mg/dL (0.70-1.30); Chloride 104 mmol/L (98-107); Estimated GFR 54.41 (mL/min/1.73m2); Glucose 121 mg/dL (74-106); Potassium 4.3 mmol/L (3.5-5.1); Sodium 141 mmol/L (136-145); Total Protein 7.1 g/dL (6.4-8.2)
[2024-01-26] MEDS: Normal Saline - Diluent 50 ML VIAL IJ (11:34)
[2024-01-26] MEDS: Omnipaque 350 MG/ML 500 ML BTL-Imaging package 100 ML IJ (11:35)
[2024-01-26 21:06] LABS: CEA 1.1 ng/mL (See Note)
== END 2024-01-26 00:54 ==
LOC: DI 00:34
PROVIDERS: PCP Family Medicine; Visit Provider Nurse Practitioner Family
DX: C20 Malignant neoplasm of rectum (principal); Z98.890 Other specified postprocedural states
CPT/HCPCS: 74177; 80053; 71260; 82378; 85025

== ENCOUNTER 2024-05-02 03:14 | Outpatient (CLI) | payer MEDICARE, SELFPAY ==
[2024-05-02 13:26] LABS: Abs Immature Grans 0.02 10^3/uL (0.0-0.06); Absolute Basophil Count 0.08 10^3/uL (0.0-0.2); Absolute Eosinophil Count 0.43 10^3/uL (0.0-0.7); Absolute Monocyte Count 0.51 10^3/uL (0.1-0.8); Absolute Neutrophil Count 4.11 10^3/uL (1.2-6.7); Basophils % 1.2 %; Eosinophils % 6.6 %; HGB 17.9 g/dL (13.5-17.5); Immature Grans % 0.3 %; Lymphocytes % 21.4 %; MCH 31.2 pg (27.0-33.0); MCHC 34.4 % (32.0-36.0); MCV 91 fL (80-95); MPV 9.3 fL (8.0-11.0); Monocytes % 7.8 %; Neutrophils % 62.7 %; Platelet Count 185 10^3/uL (130-400); RBC 5.73 10^6/uL (4.36-5.78); RDW 12.5 % (11.8-14.1); RDW-SD 41.4 fL; WBC 6.55 10^3/uL (4.4-10.8)
[2024-05-02 13:35] LABS: ALT 34 U/L (16-63); AST 19 U/L (15-37); Albumin 3.9 g/dL (3.4-5.0); Alkaline Phosphatase 101 U/L (46-116); Anion Gap 4.8 mmol/L (3-11); BUN 23 mg/dL (7-18); Bilirubin, Total 0.48 mg/dL (0.2-1.0); CO2 29.2 mmol/L (21.0-32.0); CREATININE 1.3 mg/dL (0.70-1.30); Calcium 9.5 mg/dL (8.5-10.1); Chloride 108 mmol/L (98-107); Glucose 96 mg/dL (74-106); Potassium 4.2 mmol/L (3.5-5.1); Sodium 142 mmol/L (136-145)
[2024-05-03 08:25] LABS: CEA 1.2 ng/mL (See Note)
== END 2024-05-02 03:15 | disposition home or self-care (01) ==
PROVIDERS: Nurse Practitioner Family; PCP Family Medicine; Visit Provider Internal Medicine Hematology & Oncology
DX: C20 Malignant neoplasm of rectum (principal)
CPT/HCPCS: 36415; 80053; 82378; 85025

== ENCOUNTER 2024-07-22 02:00 | Outpatient (CLI) | payer MEDICARE, SELFPAY ==
--- NOTE | 2024-07-22 | DI.CT_ITS ---
Exam(s) CT CHEST/ABD/PEL W EXAM: CT CHEST/ABD/PEL W CLINICAL HISTORY: Local recurrence of rectal cancer, C20, recurrent colon cancer resected x2. TECHNIQUE: Imaging Protocol: Axial computed tomography images with coronal and sagittal reformatted images were created and reviewed. Computer aided detection (CAD) was utilized. CONTRAST MATERIAL: Intravenous: Omnipaque 350 Contrast volume:100 ml Oral: yes / COMPARISON: CT CT CHEST/ABD/PEL W from 06/02/[address] CHEST/ABD/PEL W from 01/26/2024 FINDINGS: CHEST: Tracheobronchial tree: Patent. Pulmonary parenchyma: No consolidation or dominant measurable mass. Pleura: No effusion or pneumothorax. Mediastinum: Within normal limits. Aorta: Thoracic portion non-dilated. Pulmonary arteries: No visible emboli. Heart: No pericardial effusion. Bones: Unremarkable for age. No lytic or blastic lesions.No compression fractures. Soft tissues: Unremarkable. ABDOMEN and PELVIS: Liver: Normal density. No measurable mass. Gallbladder and biliary tract: A single gallstone is noted. No wall thickening. No biliary dilatati on. Pancreas: Normal density, no abnormal calcifications or inflammatory process. Spleen: Normal. Kidneys: Normal size, contour and axis. No radiodense stones. No obstructive uropathy. No suspicious masses seen. Adrenal glands: No masses seen. Aorta: Abdominal portion non-dilated. Lymph nodes: Within normal limits. Soft tissues: Left-sided colostomy is unremarkable. Bladder: Nearly empty. Unremarkable. Bowel: Multiple surgical clips around the fundus of the stomach. Small diverticulum of the descendin g duodenum. No obstruction or bowel wall thickening. Left-sided colostomy is again noted. There h as been there has been previous resection of the rectosigmoid. Diverticulosis without evidence of di verticulitis. No visible colonic mass. The colon is mostly opacified with oral contrast. The appen rex is normal. Peritoneal cavity: No ascites. No focal collection. No mesenteric inflammatory response. No free ai r. Bones: Unremarkable for age. Reproductive organs: Unremarkable. IMPRESSION: Status post resection of rectosigmoid colon. No evidence of metastatic disease in the chest, abdomen or pelvis. RADIATION DOSE DELIVERED: Total DLP DATA REPOSITORY: All CT scans at this facility are submitted to the National Radiology Data Registry (NRDR) Dose Index Registry (DIR) with the [employer] (ACR). RADIATION OPTIMIZATION: All CT scans at this facility use at least one of these dose optimization te chniques: automated exposure control; mA and/or kV adjustment per patient size (includes targeted exa ms where dose is matched to clinical indication); or iterative reconstruction.
[2024-07-22 12:07] LABS: Abs Immature Grans 0.03 10^3/uL (0.0-0.06); Absolute Basophil Count 0.06 10^3/uL (0.0-0.2); Absolute Eosinophil Count 0.11 10^3/uL (0.0-0.7); Absolute Lymphocyte Count 1.14 10^3/uL (1.2-3.4); Absolute Monocyte Count 0.49 10^3/uL (0.1-0.8); Absolute Neutrophil Count 4.26 10^3/uL (1.2-6.7); Eosinophils % 1.8 %; HCT 54.4 % (40.0-50.0); HGB 18.3 g/dL (13.5-17.5); Immature Grans % 0.5 %; Lymphocytes % 18.7 %; MCHC 33.6 % (32.0-36.0); MCV 92 fL (80-95); MPV 8.9 fL (8.0-11.0); Platelet Count 258 10^3/uL (130-400); RDW 12.3 % (11.8-14.1); RDW-SD 42.3 fL; WBC 6.09 10^3/uL (4.4-10.8)
[2024-07-22 12:24] LABS: ALT 30 U/L (16-63); AST 20 U/L (15-37); Albumin 3.7 g/dL (3.4-5.0); Alkaline Phosphatase 110 U/L (46-116); Anion Gap 8.4 mmol/L (3-11); BUN 21 mg/dL (7-18); Bilirubin, Total 0.92 mg/dL (0.2-1.0); CO2 29.6 mmol/L (21.0-32.0); CREATININE 1.5 mg/dL (0.70-1.30); Calcium 9.1 mg/dL (8.5-10.1); Chloride 106 mmol/L (98-107); Estimated GFR 49.77 (mL/min/1.73m2); Glucose 117 mg/dL (74-106); Potassium 4.6 mmol/L (3.5-5.1); Sodium 144 mmol/L (136-145); Total Protein 6.9 g/dL (6.4-8.2)
[2024-07-22] MEDS: Barium Sulfate 2% W/V-Berry Smoothie 450 ML BTL PO ×2 (15:20→15:21)
[2024-07-22] MEDS: Omnipaque 350 MG/ML 100 ML BTL IJ (15:24)
[2024-07-22] MEDS: Normal Saline - Diluent 50 ML VIAL IJ (15:24)
[2024-07-22 21:57] LABS: CEA 0.7 ng/mL (See Note)
== END 2024-07-22 02:20 ==
PROVIDERS: PCP Family Medicine; Visit Provider Nurse Practitioner Family
DX: C20 Malignant neoplasm of rectum (principal)
CPT/HCPCS: 74177; 80053; 71260; 82378; 85025; J3490

== ENCOUNTER 2024-09-02 02:45 | Outpatient (CLI) | payer MEDICARE, SELFPAY ==
[2024-09-12 18:47] LABS: MPNR Result see interpretation
== END 2024-09-02 02:46 | disposition home or self-care (01) ==
LOC: LBO 02:45
PROVIDERS: PCP Family Medicine; Visit Provider Internal Medicine Hematology & Oncology
DX: D75.1 Secondary polycythemia (principal)
CPT/HCPCS: 36415; 81206; 81270

== ENCOUNTER 2024-09-09 01:56 | Outpatient (CLI) | payer MEDICARE, SELFPAY ==
[2024-09-11 15:14] LABS: %BCR-ABL1 Not Detected; BCR-ABL1 Molecular Response Not Detected; BCR-ABL1 p210 FusionTranscript Not Detected
[2024-09-11 15:15] LABS: BCR-ABL1 Interpretation See Comments
[2024-09-11 15:17] LABS: BCR-ABL1 Methods & Limitations See Comments
== END 2024-09-09 01:57 | disposition home or self-care (01) ==
LOC: LBO 01:56
PROVIDERS: PCP Family Medicine; Visit Provider Internal Medicine Hematology & Oncology
DX: D75.1 Secondary polycythemia (principal)
CPT/HCPCS: 36415; 81206

== ENCOUNTER → 2024-10-28 13:59 | Outpatient (BNVA) | payer MEDICARE, SELFPAY | PROVIDERS: PCP Orthopaedic Surgery Foot and Ankle Surgery; Referring Provider Orthopaedic Surgery Foot and Ankle Surgery; Visit Provider Podiatrist | DX: L60.3 Nail dystrophy (principal); L60.2 Onychogryphosis; L84 Corns and callosities; G62.0 Drug-induced polyneuropathy; T45.1X5A Adverse effect of antineoplastic and immunosuppressive drugs, initial encounter; M67.01 Short Achilles tendon (acquired), right ankle; M67.02 Short Achilles tendon (acquired), left ankle; R09.89 Other specified symptoms and signs involving the circulatory and respiratory systems; L65.9 Nonscarring hair loss, unspecified; L85.8 Other specified epidermal thickening | CPT/HCPCS: 11056; 11719 ==

== ENCOUNTER 2025-01-27 04:15 | Outpatient (CLI) | payer MEDICARE, SELFPAY ==
[2025-01-27 11:42] LABS: Abs Immature Grans 0.04 10^3/uL (0.0-0.06); HCT 47.8 % (40.0-50.0); HGB 16.6 g/dL (13.5-17.5); Immature Grans % 0.5 %; MCH 32.2 pg (27.0-33.0); MCHC 34.7 % (32.0-36.0); MCV 93 fL (80-95); MPV 9.4 fL (8.0-11.0); Platelet Count 221 10^3/uL (130-400); RBC 5.15 10^6/uL (4.36-5.78); RDW 12.9 % (11.8-14.1); RDW-SD 43.8 fL; WBC 8.86 10^3/uL (4.4-10.8)
[2025-01-27 12:05] LABS: ALT 28 U/L (16-63); AST 19 U/L (15-37); Albumin 4.0 g/dL (3.4-5.0); Alkaline Phosphatase 115 U/L (46-116); Anion Gap 8.4 mmol/L (3-11); BUN 21 mg/dL (7-18); Bilirubin, Total 1.0 mg/dL (0.2-1.0); CO2 29.6 mmol/L (21.0-32.0); Calcium 9.5 mg/dL (8.5-10.1); Chloride 103 mmol/L (98-107); Estimated GFR 65.06 (mL/min/1.73m2); Glucose 180 mg/dL (74-106); Potassium 4.0 mmol/L (3.5-5.1); Sodium 141 mmol/L (136-145); Total Protein 7.1 g/dL (6.4-8.2)
[2025-01-27 18:32] LABS: CEA 0.9 ng/mL (See Note)
== END 2025-01-27 04:16 | disposition home or self-care (01) ==
PROVIDERS: PCP Orthopaedic Surgery Foot and Ankle Surgery; Visit Provider Internal Medicine Hematology & Oncology
DX: C21.0 Malignant neoplasm of anus, unspecified (principal); D75.1 Secondary polycythemia
CPT/HCPCS: 36415; 80053; 82378; 85025

== ENCOUNTER 2025-04-08 15:00 | Emergency (ER) | payer MEDICARE, SELFPAY ==
[2025-04-08] VITALS (21 sets, daily range): BP systolic 133–174; BP diastolic 80–97; PULSE 71–88; RESP 13–31; TEMP 36.6; O2SAT 91–97
--- NOTE | 2025-04-08 15:00 | RT.EKG_ITS ---
APPROVED REPORT Exam: Resting ECG Reason for Exam: chest pain Patient Location: E HR:87 bpm ECG Measurements Heart Rate 87 AXIS [place] 181 P 20 QRSd 97 QRS 42 QT 381 T 84 QTc 458 Conclusion Sinus rhythm...normal P axis, V-rate 60- 99 No Occlusion [place]
--- NOTE | 2025-04-08 15:31 | W.ED.GENAD ---
Discharge Plan Discharge Details Chief Complaint: Chest Pain Clinical Impression: Viral URI with cough, Chest pain, unspecified Primary Care Provider: Rakesh Marie ED Provider: Jemal Cullen Home Meds and New Rx's Prescriptions: New promethazine-DM 6.25-15 mg/5 mL syrup 5 ml PO Q6H PRNQty: 118 0RF cetirizine 10 mg tablet 10 mg PO DAILY PRNQty: 7 0RF benzonatate 100 mg capsule 100 mg PO BID PRNQty: 7 0RF Continued lidocaine 4 % cream 1 applic topical BID PRNQty: 15 0RF testosterone 12.5 mg/ 1.25 gram (1 %) gel in metered-dose pump 4 pump topical DAILY duloxetine 60 mg capsule,delayed release(DR/EC) 60 mg PO DAILY gabapentin 300 mg capsule 300 mg PO TID Patient Comments: TAKE ONE CAPSULE BY MOUTH THREE TIMES A DAY vitamin B complex Capsule 1 cap PO HS Patient Comments: TAKE ONE CAPSULE BY MOUTH EVERY DAY bupropion HCl 150 mg tablet extended release 24 hr 150 mg PO HS Patient Comments: TAKE ONE TABLET BY MOUTH EVERY MORNING lisdexamfetamine [Vyvanse] 70 mg capsule 70 mg PO DAILY Patient Comments: TAKE ONE CAPSULE BY MOUTH EVERY MORNING HPI General Date/Time Provider Initiated Documentation: 04/08/25 15:18. HPI Narrative: MDM This is an overall quite well-appearing normothermic and not tachycardic 70-year-old male with chest pain worse with coughing for which patient will undergo ED evaluation for ischemia. ECG showing narrow complex normal sinus rhythm at a rate of 87. Normal axis. Intervals within normal limits. No ST segment abnormalities. No T wave versions. No acute injury pattern. No tearing quality to suggest aortic dissection. Given pain worse when breathing will obtain D-dimer to rule stratify for PE I will accept a dimer less than 1000 as unremarkable. No rash to chest to suggest zoster. No abnormal lung sounds to suggest pneumonia. Will swab for COVID and influenza given cough. Not hypotensive nor tachycardic to suggest tamponade. Patient has not been vomiting to suggest increased risk for esophageal rupture. No right upper quadrant tenderness to suggest acute cholecystitis. Will reassess following labs imaging. 4:23 PM COVID influenza RSV all negative. CBC lacks anemia thrombocytopenia and leukocytosis. Chest x-ray with no acute cardiopulmonary process. 4:43 PM Initial reassuring troponin. Reassuring comprehensive metabolic panel. Negative D-dimer. Normal lipase. I updated patient. I sent symptomatic medications into his pharmacy. I signed patient out to Dr. Wale baer pending repeat troponin. If repeat troponin is negative patient I discussed return indications with worsening chest pain nausea vomiting did not stop or any fevers. Patient understood his return indications. HEART SCORE Chest pain Diagnostic Protocol: [-History/Physical/Gestalt: Slightly Suspicious (0)] [-EKG: Normal and/or unchanged from prior EKG (0)] [- AGE: 65 and older (+2)] [- RISK FACTORS: 1 - 2 risk factors (+1)] [-TROPONIN: <= normal limit (0)] - TOTAL SCORE: 3 - Risk Factors: DM, current or recent smoker, HTN, HLD, family hx of CAD, obesity - INTERPRETATION: With a total score of 3 or less, risk of major cardiac event within six weeks 1.7%, likely lower with two negative troponins. [I explained to the patient that the risk of subsequent major cardiac event within 1 month is not 0, however risk predicted to be less than 2%. Patient verbalized understanding, accepts this risk and shared and the decision for discharge with PCP follow-up for further evaluation and management. They understand to return to the ED immediately with any worsening symptoms, new symptoms or other concerns.] HPI This is a patient with a history of CPAP machine use presenting with a persistent cough. The patient has been experiencing this cough for the past 5 months, which he describes as more forceful than usual. He is uncertain about the frequency of the cough during periods of rest or inactivity. He reports no associated fevers, cold, or influenza-like symptoms. He has not engaged in any physical exercise recently. He has a history of using a CPAP machine, but currently, he is not using it. He has never experienced a cough lasting more than a few days, typically associated with cold or flu symptoms. 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 He does not smoke cigarettes. He has no history of blood clots in his legs or lungs. The patient also reports mild chest pain, which he attributes to his coughing. The pain is not constant and is described as a sensation similar to the feeling experienced after running or chasing a child. Exam General: Well-appearing in no acute distress speaking in complete sentences. Head: Normocephalic, atraumatic. Eye: Extraocular eye movements intact. No conjunctival injection. No scleral icterus. Ear, nose, mouth, throat: Grossly normal inspection. Normal voice, handling secretions normally. Neck: Trachea midline. Cardiovascular: Well-perfused distal extremities. Regular rate and rhythm. Chest wall: No rash to chest wall. No chest wall tenderness. Respiratory: Nonlabored respiration. Clear lungs bilaterally. Gastrointestinal: Nondistended abdomen. Soft. Nontender. No rebound. No guarding. Musculoskeletal: No edema. Moving all 4 extremities spontaneously. Skin: Normal for age and race, grossly normal temperature and turgor. No acute rash. Neurologic: Alert and appropriate, no apparent acute deficits. Psychiatric: Mood and manner are appropriate. Grooming and personal hygiene are appropriate. Related Data Home Medications ?Medication ?Instructions ?Recorded ?Confirmed bupropion HCl 150 mg 24 hr tablet, 150 mg PO HS 05/17/21 04/08/25 extended release gabapentin 300 mg capsule 300 mg PO TID 05/17/21 04/08/25 lisdexamfetamine 70 mg capsule 70 mg PO DAILY 05/17/21 04/08/25 (Vyvanse) vitamin B complex 1 cap PO HS 05/17/21 04/08/25 lidocaine 4 % topical cream 1 applic topical BID PRN #15 grams 07/29/21 04/08/25 benzonatate 100 mg capsule 100 mg PO BID PRN #7 caps 04/08/25 cetirizine 10 mg tablet 10 mg PO DAILY PRN #7 tabs 04/08/25 duloxetine 60 mg capsule,delayed 60 mg PO DAILY 04/08/25 04/08/25 release promethazine-DM 6.25 mg-15 mg/5 mL 5 ml PO Q6H PRN #118 mL 04/08/25 oral syrup testosterone 12.5 mg/1.25 gram per 4 pump topical DAILY 04/08/25 04/08/25 pump actuation (1%) transdermal gel Previous Rx's ?Medication ?Instructions ?Recorded lidocaine 4 % topical cream 1 applic topical BID PRN #15 grams 07/29/21 benzonatate 100 mg capsule 100 mg PO BID PRN #7 caps 04/08/25 cetirizine 10 mg tablet 10 mg PO DAILY PRN #7 tabs 04/08/25 promethazine-DM 6.25 mg-15 mg/5 mL 5 ml PO Q6H PRN #118 mL 04/08/25 oral syrup Allergies Allergy/AdvReac Type Severity Reaction Status Date / Time No Known Allergies Allergy Unverified 04/08/25 15:09 General Stated Complaint: Chest Pain WEST: 3 Course Vital Signs Vital signs: Vital Signs Temperature 36.6 C 04/08/25 15:04 Pulse 86 04/08/25 15:04 Respiratory Rate 16 04/08/25 15:04 Blood Pressure 148/84 H 04/08/25 15:04 Pulse Oximetry 97 04/08/25 15:04 Temperature 36.6 C 04/08/25 15:04 Pulse 86 04/08/25 15:04 Respiratory Rate 16 04/08/25 15:04 Blood Pressure 148/84 H 04/08/25 15:04 Pulse Oximetry 97 04/08/25 15:04 Oxygen Delivery Method Room Air 04/08/25 15:04 Oxygen Flow Rate 0 04/08/25 15:04 PFSH All Active Problems (Updated 04/08/25 @ 16:45 by Jemal Cullen MD) Chest pain, unspecified (Acute) Viral URI with cough (Acute) Achilles tendon contracture, bilateral (Acute) Dystrophia unguium (Acute) Long toenail (Acute) Corns and callosities (Acute) Chemotherapy-induced peripheral neuropathy (Acute) Arthritis (Acute) Neuropathy (Acute) Colon cancer (Chronic) Lightheaded (Acute) Deviated nasal septum (Chronic) Neoplasm of unspecified behavior of bone, soft tissue, and skin (Chronic) Medical History Carpal tunnel syndrome Surgical History History of esophageal surgery History of colon resection Social History Smoking/Tobacco Use Status: Never Smoking risk assessment performed?: Yes Alcohol Intake: never Drug use: Never Substance use type: does not use Housing: house Do you feel safe at home: Yes Do you feel safe in your relationship?: Yes
--- NOTE | 2025-04-08 15:55 | DI.RAD_ITS ---
Exam(s) XR CHEST 2V PA LATERAL EXAM: XR CHEST 2V PA LATERAL CLINICAL HISTORY: cough x 4 weeks TECHNIQUE: 2D digital imaging was performed of the chest. Two images were obtained. PA and lateral views were obtained. COMPARISON: No exams were available for comparison FINDINGS: MEDIASTINUM: Normal. HEART: Normal. PULMONARY VASCULATURE: Normal. LUNGS: Clear. PLEURAL SPACE: No pleural effusion or pneumothorax. BONE:Within normal limits for the patient's age. OTHER FINDINGS:There is surgical clips at the gastroesophageal junction. IMPRESSION: No acute pulmonary findings. DATA REPOSITORY: RADIATION DOSE DELIVERED:
[2025-04-08 16:08] LABS: COVID-19 PCR Negative (Negative); RSV PCR Negative (Negative)
[2025-04-08 16:10] LABS: Abs Immature Grans 0.03 10^3/uL (0.0-0.06); HCT 47.1 % (40.0-50.0); HGB 16.1 g/dL (13.5-17.5); Immature Grans % 0.4 %; MCH 30.8 pg (27.0-33.0); MCHC 34.2 % (32.0-36.0); MCV 90 fL (80-95); MPV 9.3 fL (8.0-11.0); Platelet Count 202 10^3/uL (130-400); RBC 5.22 10^6/uL (4.36-5.78); RDW 11.7 % (11.8-14.1); RDW-SD 38.4 fL; WBC 8.00 10^3/uL (4.4-10.8)
[2025-04-08 16:29] LABS: ALT 37 U/L (16-63); AST 21 U/L (15-37); Albumin 3.9 g/dL (3.4-5.0); Alkaline Phosphatase 129 U/L (46-116); Anion Gap 8.2 mmol/L (3-11); BUN 19 mg/dL (7-18); Bilirubin, Total 0.6 mg/dL (0.2-1.0); CO2 29.8 mmol/L (21.0-32.0); Calcium 9.2 mg/dL (8.5-10.1); Chloride 104 mmol/L (98-107); Estimated GFR 64.65 (mL/min/1.73m2); Glucose 128 mg/dL (74-106); Lipase 35 U/L (<78); Potassium 3.7 mmol/L (3.5-5.1); Sodium 142 mmol/L (136-145); Total Protein 7.1 g/dL (6.4-8.2); Troponin I 7 ng/L (<or=76)
[2025-04-08 16:36] LABS: D-Dimer 441 ng/mlFEU (<500)
--- NOTE | 2025-04-08 16:48 | W.EDPROG ---
Date of service: 04/08/25 Time of Service: 17:00 Medical Decision Making In brief, this is a 70-year-old male patient who presented today for evaluation of 4 weeks of cough with chest pain during coughing. Prior to my taking over his care, the previous provider obtained a reassuring EKG and chest x-ray, and laboratory studies that did not show any significant abnormalities to explain his symptoms, including a negative D-dimer and a negative initial troponin. The patient was signed out to me with a plan to follow-up on a delta troponin, and likely discharge the patient with a short course of cough suppressant medications and close outpatient follow-up. Delta troponin was reviewed by myself, and was noted to be 6, with no significant interval increase to suggest active ischemia. These findings were shared with the patient, and he had an opportunity to have all questions about the follow-up plan answered. At this time, the patient has had a full medical evaluation and is safe for discharge to home. They are hemodynamically stable, ambulatory, and tolerating PO. They are understanding of the follow-up plan and return precautions. They left our facility without incident. Darline Carlson MD Discharge Plan Disposition Patient Disposition: Home Discharge Details Clinical Impression: Viral URI with cough, Chest pain, unspecified Primary Care Provider: Rakesh Marie ED Provider: Darline Carlson Home Meds and New Rx's Prescriptions: New promethazine-DM 6.25-15 mg/5 mL syrup 5 ml PO Q6H PRNQty: 118 0RF cetirizine 10 mg tablet 10 mg PO DAILY PRNQty: 7 0RF benzonatate 100 mg capsule 100 mg PO BID PRNQty: 7 0RF Continued lidocaine 4 % cream 1 applic topical BID PRNQty: 15 0RF testosterone 12.5 mg/ 1.25 gram (1 %) gel in metered-dose pump 4 pump topical DAILY duloxetine 60 mg capsule,delayed release(DR/EC) 60 mg PO DAILY gabapentin 300 mg capsule 300 mg PO TID Patient Comments: TAKE ONE CAPSULE BY MOUTH THREE TIMES A DAY vitamin B complex Capsule 1 cap PO HS Patient Comments: TAKE ONE CAPSULE BY MOUTH EVERY DAY bupropion HCl 150 mg tablet extended release 24 hr 150 mg PO HS Patient Comments: TAKE ONE TABLET BY MOUTH EVERY MORNING lisdexamfetamine [Vyvanse] 70 mg capsule 70 mg PO DAILY Patient Comments: TAKE ONE CAPSULE BY MOUTH EVERY MORNING Discharge Instructions Instructions: Cough, Adult ED Additional Instructions: You were seen in the emergency department today for evaluation of your cough and chest discomfort. Examination performed, had a reassuring EKG and chest x-ray, and laboratory studies that did not show any abnormalities such as damage to your heart, evidence of blood clot, or other findings to explain your symptoms. Your COVID and influenza test was negative today. As discussed with Dr. Cullen, we have sent a few medications to your pharmacy to trial for management of severe cough. It is important that you contact your primary care provider to discuss this visit and any symptoms that change, worsen, or persist. Thank you for allowing us to be part of your care. Discharge Data Discharge Date/Time-TO BE ENTERED AT DEPARTURE: 04/08/25 17:38
[2025-04-08 17:22] LABS: Troponin I 6 ng/L (<or=76)
== END 2025-04-08 17:38 | disposition home or self-care (01) ==
PROVIDERS: Emergency Medicine; Physician Assistant; Emergency Provider Emergency Medicine; PCP Orthopaedic Surgery Foot and Ankle Surgery
DX: J06.9 Acute upper respiratory infection, unspecified (principal); R05.9 Cough, unspecified; R07.9 Chest pain, unspecified
CPT/HCPCS: 99284; 99285; 36415; 00123; 80053; 83690; 87637; 93005; 71046; 84484; 85025; 85379; 93010

== ENCOUNTER 2025-05-26 00:45 | Outpatient (CLI) | payer MEDICARE, SELFPAY ==
[2025-05-26 11:15] LABS: Abs Immature Grans 0.03 10^3/uL (0.0-0.06); HCT 47.1 % (40.0-50.0); HGB 15.9 g/dL (13.5-17.5); Immature Grans % 0.4 %; MCH 31.0 pg (27.0-33.0); MCHC 33.8 % (32.0-36.0); MCV 92 fL (80-95); MPV 9.2 fL (8.0-11.0); Platelet Count 202 10^3/uL (130-400); RBC 5.13 10^6/uL (4.36-5.78); RDW 12.5 % (11.8-14.1); RDW-SD 42.2 fL; WBC 8.14 10^3/uL (4.4-10.8)
[2025-05-26 11:34] LABS: ALT 23 U/L (10-49); AST 21 U/L (<34); Albumin 4.3 g/dL (3.2-5.0); Alkaline Phosphatase 118 U/L (46-116); Anion Gap 8.6 mmol/L (3-11); BUN 21 mg/dL (9-23); Bilirubin, Total 0.6 mg/dL (0.2-1.2); CO2 28.4 mmol/L (20.0-31.0); Calcium 9.3 mg/dL (8.3-10.6); Chloride 105 mmol/L (98-107); Glucose 155 mg/dL (74-106); Potassium 4.4 mmol/L (3.5-5.1); Sodium 142 mmol/L (136-145); Total Protein 6.6 g/dL (5.7-8.2)
[2025-05-26 22:14] LABS: CEA 1.0 ng/mL (See Note)
== END 2025-05-26 00:46 | disposition home or self-care (01) ==
LOC: LBO 00:45
PROVIDERS: PCP Orthopaedic Surgery Foot and Ankle Surgery; Visit Provider Internal Medicine Hematology & Oncology
DX: C21.0 Malignant neoplasm of anus, unspecified (principal)
CPT/HCPCS: 36415; 80053; 82378; 85025